=== PATIENT | male | born 1980 | race American Indian/Alaskan Native ===

== ENCOUNTER 2017-02-04 23:59 | Emergency (ER) | payer SELFPAY ==
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
[2017-02-05 01:55] VITALS: TEMP 97.8
[2017-02-05 06:12] VITALS: BP 114/76; PULSE 76; RESP 16; O2SAT 99
== END 2017-02-05 08:38 | disposition home or self-care (01) ==
LOC: ED 23:59
DX: R52 Pain, unspecified (principal)

== ENCOUNTER 2017-04-28 19:01 | Inpatient (IN) | payer MEDICAID ==
--- NOTE | 2017-04-28 19:15 | ED PDOC ---
Arrival/HPI - General Chief Complaint: Fever Time Seen by Provider: 04/28/17 19:11 Historian: Patient - History of Present Illness Narrative History of Present Illness (Text): you were treated in the ED today for history of lower extremity paralysis, chronic cath, right lower thigh decubitus ulceration and now fever, cloudy urine with dry cough, decreased appetite, otherwise without any nausea/vomiting/ headache/dizziness/difficulty breathing/chest pain/abdomen pain/further numbness /tingling/further loss of limb function/pain with urination. 04/28/17 19:15 04/28/17 21:21 04/29/17 00:21 Past Medical History - Provider Review Nursing Documentation Reviewed: Yes - Travel History Have you recently traveled outside [place] w/in the past 3 mons?: No - Past History Past History: No Previous - Cardiac Hx Cardiac Disorders: Yes Hx Hypertension: Yes - Pulmonary Hx Respiratory Disorders: No - Neurological Hx Neurological Disorder: No - HEENT Hx HEENT Disorder: No - Renal Hx Renal Disorder: No - Endocrine/Metabolic Hx Endocrine Disorders: No - Hematological/Oncological Hx Blood Disorders: No - Integumentary Hx Dermatological Disorder: No - Musculoskeletal/Rheumatological Hx Musculoskeletal Disorders: Yes (chronic pain) Other/Comment: paralysis from the waist down - Gastrointestinal Hx Gastrointestinal Disorders: No - Genitourinary/Gynecological Hx Genitourinary Disorders: No - Psychiatric Hx Substance Use: No Family/Social History - Physician Review Nursing Documentation Reviewed: Yes Family/Social History: No Known Family HX Smoking Status: Never Smoked Hx Alcohol Use: Yes Hx Substance Use: No Allergies/Home Meds Allergies/Adverse Reactions: Allergies No Known Allergies Allergy (Verified 02/05/17 00:03) Home Medications: Home Meds Medication Instructions Recorded Confirmed No Known Home Med 02/05/17 02/05/17 Review of Systems - Review of Systems Constitutional: Fevers Eyes: Normal ENT: Normal Respiratory: Cough. absent: Normal, SOB, Sputum, Wheezing, Other Cardiovascular: Normal Gastrointestinal: Normal Genitourinary Male: Other (cloudy urine) Skin: Normal, Other (b/l le paralysis with right lower leg decubitus) Neurological: Normal Endocrine: Normal Hemo/Lymphatic: Normal Psychiatric: Normal Physical Exam Vital Signs Reviewed: Yes Vital Signs Temp Pulse Resp BP Pulse Ox 04/28/17 21:55 98 H 18 97/57 L 96 04/28/17 19:18 100.2 F H 145 H 21 136/79 100 Temperature: Febrile Blood Pressure: Hypertensive Pulse: Regular Respiratory Rate: Normal Appearance: Positive for: Well-Appearing Pain Distress: None Mental Status: Positive for: Alert and Oriented X 3 - Systems Exam Head: Present: Atraumatic, Normocephalic Pupils: Present: PERRL Extroacular Muscles: Present: EOMI Conjunctiva: Present: Normal Ears: Present: Normal Mouth: Present: Moist Mucous Membranes Pharnyx: Present: Normal Nose (External): Present: Atraumatic Nose (Internal): Present: Normal Inspection Neck: Present: Normal Range of Motion Respiratory/Chest: Present: Clear to Auscultation, Good Air Exchange Cardiovascular: Present: Regular Rate and Rhythm Abdomen: No: Tenderness, Distention, Normal Bowel Sounds, Peritoneal Signs, Rebound, Guarding, McBurney's Point Tender, Rovsing's Sign Present, Hernias, Feeding Tubes, Ostomy Tubes, Mass/Organomegaly, Scars, Other Genitourinary Male: Present: Other (catheter with melendez in place and mild skin excoriation without erythema/fluctuance/crepitus or tenderness) Upper Extremity: Present: Normal Inspection Lower Extremity: Present: Other (right lateral thight 20cm circumferential stage 4 decubitus ulceration with fibrinous exudate without erythema/fluctuance/ crepitus.) Neurological: Present: GCS=15, Speech Normal, Motor Func Grossly Intact, Other ( except for b/l le paraylsis) Skin: Present: Warm, Other (see le) Psychiatric: Present: Alert, Oriented x 3, Normal Insight, Normal Concentration Medical Decision Making ED Course and Treatment: you were treated in the ED today for history of lower extremity paralysis, right lower thigh decubitus ulceration and now fever, cloudy urine with dry cough, decreased appetite, otherwise without any nausea/vomiting/headache/ dizziness/difficulty breathing/chest pain/abdomen pain/further numbness/tingling /further loss of limb function/pain with urination. You were otherwise breathing easily, smiling, good strength/sensation upper extremity, wheelchair bound, clear lungs, no abdomen tenderness, fever temp 100.2, initial heart rate 145 with plan for tylenol/intravenous fluids, stable breathing rate 18, excellent oxygen level 96% room air, elevated blood pressure 136 systolic which we recommend repeat in 2-3 days primary care office to determine further treatment, you have blood tests infection count 14.2, low blood level hemoglobin 7.2 heart blood test normal, urine test nitrite positive, influenza negative, lactic acid 1.4, heme/ocult negative, radiology cxr no acute, ECG NSR , ivf/zosyn sepsis bundle done in the ED with improvement. 04/28/17 21:20 pt refusing iv access 04/28/17 21:21 04/28/17 23:08 04/28/17 23:10 04/28/17 23:11 repeat by 97 systolic, ivf hydration 2nd bolus. 04/29/17 00:17 04/29/17 00:18 04/29/17 00:22 04/29/17 00:25 d/w dr. wilkerson for admission for ivf/abx and sepsis care. - Lab Interpretations Lab Results: 04/28/17 21:05 04/28/17 21:05 Lab Results 04/28/17 21:22: pO2 47, VBG pH 7.44 H, VBG pCO2 43.0, VBG HCO3 29.2 H, VBG Total CO2 30.5 H, VBG O2 Sat (Calc) 89.3 H, VBG Base Excess 4.4 H, VBG Potassium 3.6, Glucose 103, Lactate 1.4, FiO2 21.0, Sodium 138.0, Chloride 105.0 , Venous Blood Potassium 3.6 04/28/17 21:05: Influenza Typ A,B (EIA) Negative for flu a/b 04/28/17 21:05: Sodium 138, Potassium 3.6, Chloride 102, Carbon Dioxide 27, Anion Gap 13, BUN 10, Creatinine 0.8, Est GFR ( Amer) > 60, Est GFR (Non- Af Amer) > 60, Random Glucose 100, Calcium 8.7, Phosphorus 2.8, Magnesium 2.1, Total Bilirubin 0.9, AST 89 H, ALT 67 H, Alkaline Phosphatase 171 H, Troponin I < 0.01, Total Protein 7.5, Albumin 3.2, Globulin 4.3, Albumin/Globulin Ratio 0.8 L 04/28/17 21:05: PT 15.6 H, INR 1.42 H, APTT 31.0 04/28/17 21:05: WBC 14.2 H, RBC 2.98 L, Hgb 7.3 L, Hct 22.8 L, MCV 76.5 L, MCH 24.5 L, MCHC 32.0, RDW 15.4 H, Plt Count 421, MPV 8.7, Gran % 84.0 H, Lymph % ( Auto) 10.0 L, [place] % (Auto) 5.5, Eos % (Auto) 0.3 L, Baso % (Auto) 0.2, Gran # 11.95 H, Lymph # 1.4, [place] # 0.8 H, Eos # 0.0, Baso # 0.03 04/28/17 10:54: Urine Color Yellow, Urine Appearance Turbid, Urine pH 6.0, Ur Specific [place] 1.020, Urine Protein 100 H, Urine Glucose (UA) Negative, Urine Ketones 15 H, Urine Blood Moderate H, Urine Nitrate Positive H, Urine Bilirubin Small H, Urine Urobilinogen 4.0 H, Ur Leukocyte Esterase Moderate H, Urine RBC 5 - 10, Urine WBC 20 - 25, Ur Epithelial Cells 1 - 3, Urine Bacteria Mod I have reviewed the lab results: Yes - RAD Interpretation Narrative RAD Interpretations (Text): 04/29/17 00:19 CXR no acute Radiology Orders: 04/28/17 19:43 CHEST TWO VIEWS (PA/LAT) [RAD] Stat Brake Rider: ED Physician - EKG Interpretation Interpreted by ED Physician: Yes (NSR, flipped t waves avr, v1, flattened v3) Type: 12 lead EKG - Medication Orders Current Medication Orders: Acetaminophen (Tylenol 325mg Tab) 975 mg PO ONCE PRN PRN Reason: Fever >100.4 F Last Admin: 04/28/17 19:59 Dose: 975 mg [facility] Pain/Vitals Document 04/28/17 19:59 GMD (Rec: 04/28/17 20:[address] [facility]-[id number]) Pain Reassessment Is This A Pain ReAssessment? No Sleep Is patient sleeping during reassessment? No Presence of Pain Presence of Pain Yes Pain Scale Used Pain Scale Used Numeric Location Left, Right or Bilateral Left Pain Location Body Site rib Sodium Chloride (Sodium Chloride 0.9%) 1,000 mls @ 150 mls/hr IV .Q6H40M [facility] Last Admin: 04/28/17 21:10 Dose: 150 mls/hr eMAR Start Stop Document 04/28/17 21:10 GMD (Rec: 04/28/17 21:[address] [id number]) Intravenous Solution Start Date 04/28/17 Start Time 21:10 Discontinued Medications Piperacillin Sod/Tazobactam Sod (Zosyn 4.5 Gm In Ns 100ml) 4.5 gm in 100 mls @ 200 mls/hr IVPB STAT STA PRN Reason: Protocol Stop: 04/28/17 20:10 Last Admin: 04/28/17 21:58 Dose: 200 mls/hr eMAR Start Stop Document 04/28/17 21:58 GMD (Rec: 04/28/17 21:[address] [id number]) Intravenous Solution Start Date 04/28/17 Start Time 21:58 End Date 04/28/17 End time 22:28 Total Infusion Time 30 Sodium Chloride (Sodium Chloride 0.9%) 1,000 mls @ 2,000 mls/hr IV .Q30M ONE Stop: 04/28/17 23:34 Disposition/Present on Arrival - Present on Arrival Any Indicators Present on Arrival: No History of DVT/PE: No History of Uncontrolled Diabetes: No Urinary Catheter: No History Surgical Site Infection Following: None - Disposition Have Diagnosis and Disposition been Completed?: Yes Diagnosis: Sepsis secondary to UTI Disposition: HOSPITALIZED Disposition Time: 00:24 Patient Plan: Other (remote telemtry) Condition: IMPROVED Discharge Instructions (ExitCare): Sepsis (ED) Referrals: Raciel Fernandez MD [Primary Care Provider] - Follow up with primary Forms: [employer] ([place]an)
[2017-04-28] MEDS ORDERED: Piperacill/Tazo 4.5gm in NS 4.5 GM/100 ML BAG IVPB STA (19:41)
[2017-04-28] MEDS: Sodium Chloride 0.9% 1,000 ML IV SCH (21:10)
[2017-04-28 21:26] LABS: BASO # 0.03 K/mm3 (0.0-2.0); BASO % 0.2 % (0.0-3.0); EOS % 0.3 % (1.5-5.0); GRAN # 11.95 (1.4-6.5); LYMPH # 1.4 (1.2-3.4); MEAN CELL VOLUME 76.5 fl (80.0-105.0); MEAN CORPUSCULAR HEMOGLOBIN 24.5 pg (25.0-35.0); MEAN PLATELET VOLUME 8.7 fl (7.0-11.0); MONO # 0.8 (0.1-0.6); MONO % 5.5 % (1.0-6.0); RBC 2.98 10^6/uL (3.5-6.1); RED CELL DISTRIBUTION WIDTH 15.4 % (11.5-14.5); WHITE BLOOD COUNT 14.2 10^3/ul (4.5-11.0)
[2017-04-28 21:30] LABS: VENOUS BLOOD GAS BASE EXCESS 4.4 mmol/L (0.0-2.0); VENOUS BLOOD GAS PO2 47 mm/Hg (30-55); VENOUS BLOOD PH 7.44 (7.32-7.43)
[2017-04-28 21:35] LABS: INR 1.42 (0.93-1.08); PROTHROMBIN TIME 15.6 SECONDS (9.4-12.5)
[2017-04-28 21:39] LABS: ALB/GLOB RATIO 0.8 (1.1-1.8); ALBUMIN 3.2 g/dL (3.0-4.8); ALT/SGPT 67 U/L (7-56); AST/SGOT 89 U/L (17-59); BLOOD UREA NITROGEN 10 mg/dL (7-21); CALCIUM 8.7 mg/dL (8.4-10.5); GFR AFRICAN-AMERICAN > 60; GFR NON-AFRICAN AMERICAN > 60; MAGNESIUM 2.1 mg/dL (1.7-2.2)
[2017-04-28 22:10] LABS: HEMOGLOBIN 7.3 g/dL (14.0-18.0)
[2017-04-28 23:03] LABS: URINE BILIRUBIN SMALL (NEGATIVE); URINE BLOOD MODERATE (NEGATIVE); URINE GLUCOSE (UA) NEGATIVE (NEGATIVE); URINE LEUKOCYTE ESTERASE MODERATE Leu/uL (NEGATIVE); URINE NITRATE POSITIVE (NEGATIVE); URINE PROTEIN 100 mg/dL (<30 mg/dL)
[2017-04-28] MEDS ORDERED: Sodium Chloride 0.9% 1,000 ML IV ONE (23:05)
[2017-04-28 23:07] LABS: TROPONIN I < 0.01 ng/mL
[2017-04-28 23:07] LABS: URINE APPEARANCE TURBID (CLEAR); URINE COLOR YELLOW (YELLOW)
[2017-04-28 23:18] LABS: URINE WBC 20 - 25 /hpf (0-6)
[2017-04-28 23:19] LABS: URINE BACTERIA MOD (NEG)
--- NOTE | 2017-04-29 00:44 | CP.PCM.HP ---
<Luke Puga - Last Filed: 04/29/17 02:07> History of Present Illness - History of Present Illness History of Present Illness: 37 year old male paraplegic with a past medical history of hypertension who presents with four days of cloudy urine, loss of appetite, and fevers. On Tuesday he was discharged from [facility] in [place] for which he was being treated for a large stage IV decubitus ulcer on the right buttock. Since his discharge he was sent home with a melendez and leg bag. He denies any suprapubic fullness, burning with urination and classic symptoms of UTI given he lacks sensation from T12 down. He denies chest pain, nausea, vomiting, dizziness, syncope, or lightheadedness. PMD: Dr. Raciel Fernandez Pharmacy: [facility] in , please contact to obtain medications PSH: Debridement of decubitus ulcer PMH: Hypertension and alcohol abuse (remote) Allergies: NKDA Social: Lives with and kids, denies alcohol, tobacco, or illicit drug use. Wheel-chair and bed-bound Family History: Denies Present on Admission - Present on Admission Any Indicators Present on Admission: Yes Urinary Catheter: Yes Review of Systems - Constitutional Constitutional: Anorexia, Chills. absent: Weight Gain - EENT Eyes: As Per HPI Nose/Mouth/Throat: absent: Nasal Trauma, Halitosis Past Patient History - Past Social History Smoking Status: Never Smoked - CARDIAC Hx Cardiac Disorders: Yes Hx Hypertension: Yes - PULMONARY Hx Respiratory Disorders: No - NEUROLOGICAL Hx Neurological Disorder: No - HEENT Hx HEENT Problems: No - RENAL Hx Chronic Kidney Disease: No - ENDOCRINE/METABOLIC Hx Endocrine Disorders: No - HEMATOLOGICAL/ONCOLOGICAL Hx Blood Disorders: No - INTEGUMENTARY Hx Dermatological Problems: No - MUSCULOSKELETAL/RHEUMATOLOGICAL Hx Musculoskeletal Disorders: Yes (chronic pain) Other/Comment: paralysis from the waist down - GASTROINTESTINAL Hx Gastrointestinal Disorders: No - GENITOURINARY/GYNECOLOGICAL Hx Genitourinary Disorders: No - PSYCHIATRIC Hx Substance Use: No - SURGICAL HISTORY Hx Surgeries: Yes Meds Allergies/Adverse Reactions: Allergies Allergy/AdvReac Type Severity Reaction Status Date / Time No Known Allergies Allergy Verified 02/05/17 00:03 Physical Exam - Constitutional Appears: Non-toxic, No Acute Distress - Head Exam Head Exam: ATRAUMATIC, NORMOCEPHALIC - Eye Exam Eye Exam: Conjunctival injection Additional comments: bilateral pterygium, strabismus - ENT Exam ENT Exam: Mucous Membranes Dry, Normal Oropharynx - Neck Exam Neck exam: Positive for: Normal Inspection - Respiratory Exam Respiratory Exam: Clear to Auscultation Bilateral, NORMAL BREATHING PATTERN - Cardiovascular Exam Cardiovascular Exam: RRR, +S1, +S2 - GI/Abdominal Exam GI & Abdominal Exam: Normal Bowel Sounds, Soft. absent: Distended, Guarding, Rebound - Exam Exam: Circumcision, NORMAL INSPECTION - Extremities Exam Additional comments: legs are contractured and exhibit hair loss and pale circular macules diffusely - Back Exam Back exam: NORMAL INSPECTION. absent: CVA tenderness (L), CVA tenderness (R) - Neurological Exam Neurological exam: Alert, Oriented x3 - Psychiatric Exam Psychiatric exam: Normal Affect, Normal Mood - Skin Skin Exam: Dry, Intact, Normal Color, Warm Results - Vital Signs Recent Vital Signs: Last Vital Signs Temp 100.2 F H 04/28/17 19:18 Pulse 98 H 04/28/17 21:55 Resp 18 04/28/17 21:55 BP 97/57 L 04/28/17 21:55 Pulse Ox 96 04/28/17 21:55 - Labs Result Diagrams: 04/28/17 21:05 04/28/17 21:05 Labs: Laboratory Results - last 24 hr 04/28/17 04/28/17 04/28/17 10:54 21:05 21:05 WBC 14.2 H RBC 2.98 L Hgb 7.3 L Hct 22.8 L MCV 76.5 L MCH 24.5 L MCHC 32.0 RDW 15.4 H Plt Count 421 MPV 8.7 Gran % 84.0 H Lymph % (Auto) 10.0 L [place] % (Auto) 5.5 Eos % (Auto) 0.3 L Baso % (Auto) 0.2 Gran # 11.95 H Lymph # 1.4 [place] # 0.8 H Eos # 0.0 Baso # 0.03 PT 15.6 H INR 1.42 H APTT 31.0 pO2 VBG pH VBG pCO2 VBG HCO3 VBG Total CO2 VBG O2 Sat (Calc) VBG Base Excess VBG Potassium Glucose Lactate FiO2 Sodium Potassium Chloride Carbon Dioxide Anion Gap BUN Creatinine Est GFR ( Amer) Est GFR (Non-Af Amer) Random Glucose Calcium Phosphorus Magnesium Total Bilirubin AST ALT Alkaline Phosphatase Troponin I Total Protein Albumin Globulin Albumin/Globulin Ratio Venous Blood Potassium Urine Color Yellow Urine Appearance Turbid Urine pH 6.0 Ur Specific [place] 1.020 Urine Protein 100 H Urine Glucose (UA) Negative Urine Ketones 15 H Urine Blood Moderate H Urine Nitrate Positive H Urine Bilirubin Small H Urine Urobilinogen 4.0 H Ur Leukocyte Esterase Moderate H Urine RBC 5 - 10 Urine WBC 20 - 25 Ur Epithelial Cells 1 - 3 Urine Bacteria Mod Influenza Typ A,B (EIA) 04/28/17 04/28/17 04/28/17 21:05 21:05 21:22 WBC RBC Hgb Hct MCV MCH MCHC RDW Plt Count MPV Gran % Lymph % (Auto) [place] % (Auto) Eos % (Auto) Baso % (Auto) Gran # Lymph # [place] # Eos # Baso # PT INR APTT pO2 47 VBG pH 7.44 H VBG pCO2 43.0 VBG HCO3 29.2 H VBG Total CO2 30.5 H VBG O2 Sat (Calc) 89.3 H VBG Base Excess 4.4 H VBG Potassium 3.6 Glucose 103 Lactate 1.4 FiO2 21.0 Sodium 138 138.0 Potassium 3.6 Chloride 102 105.0 Carbon Dioxide 27 Anion Gap 13 BUN 10 Creatinine 0.8 Est GFR ( Amer) > 60 Est GFR (Non-Af Amer) > 60 Random Glucose 100 Calcium 8.7 Phosphorus 2.8 Magnesium 2.1 Total Bilirubin 0.9 AST 89 H ALT 67 H Alkaline Phosphatase 171 H Troponin I < 0.01 Total Protein 7.5 Albumin 3.2 Globulin 4.3 Albumin/Globulin Ratio 0.8 L Venous Blood Potassium 3.6 Urine Color Urine Appearance Urine pH Ur Specific [place] Urine Protein Urine Glucose (UA) Urine Ketones Urine Blood Urine Nitrate Urine Bilirubin Urine Urobilinogen Ur Leukocyte Esterase Urine RBC Urine WBC Ur Epithelial Cells Urine Bacteria Influenza Typ A,B (EIA) Negative for flu a/b Assessment & Plan - Assessment and Plan (Free Text) Assessment: 37 year old paraplegic with hypertension, immobility, stage IV right gluteal decubitus ulcer for which he was in [facility] for wound care and discharged with a leg melendez bag who now presents with 3.5 days of cloudy urine, fever, and lack of appetite. Plan: 1) Urosepsis - 2L of IVF and Zosyn given in the ED - Ceftriaxone 2 gm q24h - Vitals q4h - Blood culture - Urine culture - Chest X-ray, interpretation pending 2) Anemia, baseline unknown; patient reports dark colored stool, but denies fatigue, dyspnea, shortness of breath, - GI consulted - Stool Guaic negative in ED - Type and screen - 1 U PRBCs to be administered. - Repeat CBC, CMP in AM 3) DVT/GI prophylaxis - Lovenox - Protonix - Date & Time Date: 04/29/17 Time: 02:16 Decision To Admit - . Bed Request Type: Med/Surg <Fuentes,Bankimchan - Last Filed: 04/29/17 03:46> Results - Vital Signs Recent Vital Signs: Last Vital Signs Temp 100.2 F H 04/28/17 19:18 Pulse 92 H 04/29/17 01:00 Resp 18 04/29/17 01:00 BP 104/73 04/29/17 01:00 Pulse Ox 100 04/29/17 01:00 - Labs Result Diagrams: 04/28/17 21:05 04/28/17 21:05 Labs: Laboratory Results - last 24 hr 04/29/17 04/29/17 00:50 02:30 Blood Type O NEGATIVE Blood Type Confirm O NEGATIVE Antibody Screen Negative Crossmatch See Detail BBK History Checked No verified bt Attending/Attestation - Attestation I have personally seen and examined this patient.: Yes I have fully participated in the care of the patient.: Yes I have reviewed all pertinent clinical information: Yes Notes (Text): 04/29/17 03:43 Patient was seen when he was in bed # 17 in the ER. Agree with history , physical examination, assessment and plan. Has large right gluteal wound.
[2017-04-29 05:08] VITALS: BMI 20.5
[2017-04-29] MEDS ORDERED: Pantoprazole 20 mg EC Tab PO SCH ×2 (06:00→07:59)
[2017-04-29 07:37] LABS: BASO # 0.04 K/mm3 (0.0-2.0); BASO % 0.4 % (0.0-3.0); EOS # 0.1 (0.0-0.7); EOS % 1.1 % (1.5-5.0); GRAN # 9.65 (1.4-6.5); GRAN % 85.2 % (50.0-68.0); HEMOGLOBIN 8.2 g/dL (14.0-18.0); LYMPH # 0.8 (1.2-3.4); LYMPH % 6.9 % (22.0-35.0); MEAN CELL VOLUME 77.5 fl (80.0-105.0); MEAN CORPUSCULAR HEMOGLOBIN 25.2 pg (25.0-35.0); MEAN CORPUSCULAR HGB CONC 32.5 g/dl (31.0-37.0); MEAN PLATELET VOLUME 8.5 fl (7.0-11.0); MONO # 0.7 (0.1-0.6); MONO % 6.4 % (1.0-6.0); RBC 3.25 10^6/uL (3.5-6.1); RED CELL DISTRIBUTION WIDTH 15.3 % (11.5-14.5); WHITE BLOOD COUNT 11.3 10^3/ul (4.5-11.0)
[2017-04-29 07:47] LABS: ALBUMIN 2.8 g/dL (3.0-4.8); ALT/SGPT 60 U/L (7-56); AST/SGOT 77 U/L (17-59); BLOOD UREA NITROGEN 8 mg/dL (7-21); CALCIUM 8.3 mg/dL (8.4-10.5); GFR AFRICAN-AMERICAN > 60; GFR NON-AFRICAN AMERICAN > 60
[2017-04-29 08:03] LABS: ALB/GLOB RATIO 0.7 (1.1-1.8)
--- NOTE | 2017-04-29 09:29 | RAD ---
HISTORY: 37yoM, with cough, fever COMPARISON: No prior. TECHNIQUE: Chest PA and lateral FINDINGS: LUNGS: No active pulmonary disease. PLEURA: No significant pleural effusion identified. No pneumothorax apparent. CARDIOVASCULAR: Normal. OSSEOUS STRUCTURES: Spinal rods noted. VISUALIZED UPPER ABDOMEN: Normal. OTHER FINDINGS: None. IMPRESSION: No active disease.
--- NOTE | 2017-04-29 10:26 | CARD ---
APPROVED REPORT EKG Measurement Heart [id number] <Conclusion> Normal sinus rhythm LVH by voltage, could be a normal variant Prolonged QTc
[2017-04-29] MEDS: Sodium Chloride 0.9% 1,000 ML IV SCH (10:40)
[2017-04-29] MEDS: Enoxaparin 30 mg Syringe SC SCH (10:50)
[2017-04-29] MEDS: cefTRIAXone 2 GM IN NS 2 GM/100 ML BAG IVPB SCH (10:50)
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
--- NOTE | 2017-04-29 18:25 | CP.PCM.CON ---
History of Present Illness - History of Present Illness History of Present Illness: General Surgery Consult note- Dr. Bennett 37 M paraplegic with a past medical history of hypertension who presents with four days of cloudy urine, loss of appetite, and fevers. On Tuesday he was discharged from [facility] facility in [place] for which he was being treated for a large stage IV decubitus ulcer on the right buttock. Patient reports ulcers on Patient denies chest pain, shortness of breath, abdominal pain, numbness, weakness, dizziness, syncope, nausea, vomiting, fever, chills. PMH: Hypertension and alcohol abuse (remote) PSH: Debridement of decubitus ulcer Allergies: NKDA Social: Lives with and kids, denies alcohol, tobacco, or illicit drug use. Wheel-chair and bed-bound Family History: Denies Review of Systems - Review of Systems All systems: reviewed and no additional remarkable complaints except - Constitutional Constitutional: As Per HPI Past Patient History - Past Social History Smoking Status: Former Smoker - CARDIAC Hx Cardiac Disorders: Yes Hx Hypertension: Yes - PULMONARY Hx Respiratory Disorders: No - NEUROLOGICAL Hx Neurological Disorder: No - HEENT Hx HEENT Problems: No - RENAL Hx Chronic Kidney Disease: No - ENDOCRINE/METABOLIC Hx Endocrine Disorders: No - HEMATOLOGICAL/ONCOLOGICAL Hx Blood Disorders: No - INTEGUMENTARY Hx Dermatological Problems: No - MUSCULOSKELETAL/RHEUMATOLOGICAL Hx Falls: No - GASTROINTESTINAL Hx Gastrointestinal Disorders: No - GENITOURINARY/GYNECOLOGICAL Hx Genitourinary Disorders: No - PSYCHIATRIC Hx Substance Use: No - SURGICAL HISTORY Hx Surgeries: Yes Meds Allergies/Adverse Reactions: Allergies Allergy/AdvReac Type Severity Reaction Status Date / Time No Known Allergies Allergy Verified 02/05/17 00:03 - Medications Medications: Current Medications Acetaminophen (Tylenol 325mg Tab) 975 mg PO ONCE PRN PRN Reason: Fever >100.4 F Last Admin: 04/28/17 19:59 Dose: 975 mg Enoxaparin Sodium (Lovenox) 30 mg SC DAILY [facility] PRN Reason: Protocol Last Admin: 04/29/17 10:50 Dose: 30 mg Sodium Chloride (Sodium Chloride 0.9%) 1,000 mls @ 150 mls/hr IV .Q6H40M [facility] Last Admin: 04/29/17 10:40 Dose: 150 mls/hr Ceftriaxone Sodium (Rocephin 2 Gm Ivpb) 2 gm in 100 mls @ 100 mls/hr IVPB DAILY [facility] PRN Reason: Protocol Last Admin: 04/29/17 10:50 Dose: 100 mls/hr Pantoprazole Sodium (Protonix Ec Tab) 40 mg PO 0600 [facility] Physical Exam - Head Exam Head Exam: ATRAUMATIC - Eye Exam Eye Exam: EOMI. absent: Scleral icterus - ENT Exam ENT Exam: Mucous Membranes Moist - Respiratory Exam Respiratory Exam: NORMAL BREATHING PATTERN. absent: Accessory Muscle Use, Respiratory Distress - Cardiovascular Exam Cardiovascular Exam: +S1, +S2. absent: Bradycardia, Tachycardia - GI/Abdominal Exam GI & Abdominal Exam: Soft. absent: Distended, Rebound, Rigid, Tenderness - Back Exam Additional comments: Right Hip Stage 4 ulcer w/ necrotic tissue left hip stage 3 ulcer - Neurological Exam Neurological exam: Alert, Oriented x3 - Skin Skin Exam: Warm Results - Vital Signs Recent Vital Signs: Last Vital Signs Temp 100.1 F H 04/29/17 17:25 Pulse 108 H 04/29/17 17:25 Resp 20 04/29/17 17:25 BP 125/85 04/29/17 17:25 Pulse Ox 100 04/29/17 10:38 - Labs Result Diagrams: 04/29/17 07:00 04/29/17 07:00 Labs: Laboratory Results - last 24 hr 04/29/17 04/29/17 04/29/17 00:50 02:30 07:00 WBC 11.3 H D RBC 3.25 L Hgb 8.2 L Hct 25.2 L MCV 77.5 L MCH 25.2 MCHC 32.5 RDW 15.3 H Plt Count 344 MPV 8.5 Gran % 85.2 H Lymph % (Auto) 6.9 L Morgan % (Auto) 6.4 H Eos % (Auto) 1.1 L Baso % (Auto) 0.4 Gran # 9.65 H Lymph # 0.8 L Morgan # 0.7 H Eos # 0.1 Baso # 0.04 Sodium Potassium Chloride Carbon Dioxide Anion Gap BUN Creatinine Est GFR ( Amer) Est GFR (Non-Af Amer) Random Glucose Calcium Total Bilirubin AST ALT Alkaline Phosphatase Total Protein Albumin Globulin Albumin/Globulin Ratio Blood Type O NEGATIVE Blood Type Confirm O NEGATIVE Antibody Screen Negative Crossmatch See Detail BBK History Checked No verified bt 04/29/17 07:00 WBC RBC Hgb Hct MCV MCH MCHC RDW Plt Count MPV Gran % Lymph % (Auto) Morgan % (Auto) Eos % (Auto) Baso % (Auto) Gran # Lymph # Morgan # Eos # Baso # Sodium 142 Potassium 3.6 Chloride 107 Carbon Dioxide 26 Anion Gap 12 BUN 8 Creatinine 0.7 L Est GFR ( Amer) > 60 Est GFR (Non-Af Amer) > 60 Random Glucose 98 Calcium 8.3 L Total Bilirubin 0.8 AST 77 H ALT 60 H Alkaline Phosphatase 139 H Total Protein 6.8 Albumin 2.8 L Globulin 4.0 Albumin/Globulin Ratio 0.7 L Blood Type Blood Type Confirm Antibody Screen Crossmatch BBK History Checked Assessment & Plan - Assessment and Plan (Free Text) Assessment: 37M w/ stage 4 right hip ulcer, left stage 3 ischial ulcer Plan: - bedside sharp debridement - wet to dry w/ betadine - plan for santyl - recommend second stage debridement at a later date - medical management per primary team - abx per ID - further recs per Dr. Donald Monsivais PGY1 Procedure note: The patient was properly prepped and draped under local sedation. 1% Lidocaine was injected circumferentially around the necrotic decubitus. A wide excision and debridement of the necrotic decubitus taken down using sharp debridement # 11 blade and scissors. Levels of debridement were skin subcutaneous tissue, and muscle. Thermo-cautery was used to achieve proper hemostasis. Kerlix soaked w/ betadine stack was then placed and a pressure dressing applied. patient tolerated the procedure well. .
[2017-04-29] MEDS ORDERED: guaiFENesin DM 100 mg-10 mg/5 ml UD PO ONE (23:21)
[2017-04-30] MEDS: Pantoprazole 40 mg EC Tab PO SCH (06:00)
--- NOTE | 2017-04-30 08:05 | CP.PCM.PN ---
Subjective - Date & Time of Evaluation Date of Evaluation: 04/30/17 Time of Evaluation: 06:40 - Subjective Subjective: Surgery Progress note. Dr. Bennett Pt seen and examined at bedside. No acute events overnight. Denies F/C. No new complaints. Bilateral hip debridement dressing changed this AM Objective - Vital Signs/Intake and Output Vital Signs (last 24 hours): Temp Pulse Resp BP Pulse Ox 99.5 F 103 H 18 100/64 100 04/29/17 19:24 04/29/17 19:24 04/29/17 19:24 04/29/17 19:24 04/29/17 16:00 Intake and Output: 04/30/17 04/30/17 06:59 18:59 Intake Total 1235 Output Total 700 Balance 535 - Medications Medications: Current Medications Acetaminophen (Tylenol 325mg Tab) 975 mg PO ONCE PRN PRN Reason: Fever >100.4 F Last Admin: 04/28/17 19:59 Dose: 975 mg Enoxaparin Sodium (Lovenox) 30 mg SC DAILY [facility] PRN Reason: Protocol Last Admin: 04/29/17 10:50 Dose: 30 mg Sodium Chloride (Sodium Chloride 0.9%) 1,000 mls @ 150 mls/hr IV .Q6H40M [facility] Last Admin: 04/29/17 10:40 Dose: 150 mls/hr Ceftriaxone Sodium (Rocephin 2 Gm Ivpb) 2 gm in 100 mls @ 100 mls/hr IVPB DAILY [facility] PRN Reason: Protocol Last Admin: 04/29/17 10:50 Dose: 100 mls/hr Pantoprazole Sodium (Protonix Ec Tab) 40 mg PO 0600 [facility] Last Admin: 04/30/17 06:00 Dose: 40 mg - Labs Labs: 04/29/17 07:00 04/29/17 07:00 PT 15.6 SECONDS (9.4-12.5) H 04/28/17 21:05 INR 1.42 (0.93-1.08) H 04/28/17 21:05 APTT 31.0 Seconds (25.1-36.5) 04/28/17 21:05 - Constitutional Appears: Non-toxic, No Acute Distress - Head Exam Head Exam: ATRAUMATIC, NORMAL INSPECTION, NORMOCEPHALIC - Eye Exam Eye Exam: EOMI - ENT Exam ENT Exam: Mucous Membranes Moist - Respiratory Exam Respiratory Exam: absent: Accessory Muscle Use - Cardiovascular Exam Cardiovascular Exam: absent: JVD - GI/Abdominal Exam GI & Abdominal Exam: Soft. absent: Distended, Guarding, Tenderness - Extremities Exam Additional comments: Right hip Stage 4 decubitus. Dressing changed with betadine soaked kerlex and optifoam Left hip Stage 4 decubitus. Dressing changed with betadine soaked kerlex packing and abd pads. - Neurological Exam Neurological Exam: Alert, Awake, Oriented x3 Neuro motor strength exam: Left Lower Extremity: 0, Right Lower Extremity: 0 Assessment and Plan - Assessment and Plan (Free Text) Assessment: 37yo M with stage 4 right hip ulcer, stage 4 left ischial ulcer. S/P Bedside debridement 04/29/17. - wet to dry w/ betadine. Dressing changes prn - medical management per primary team - abx per ID - will continue to follow Further recs per Dr. Donald Cage PGY1 surgery pager: [phone]
[2017-04-30] MEDS: Enoxaparin 30 mg Syringe SC SCH (09:13)
[2017-04-30] MEDS: cefTRIAXone 2 GM IN NS 2 GM/100 ML BAG IVPB SCH (09:13)
--- NOTE | 2017-04-30 13:31 | PN ---
DATE: 04/30/2017 SUBJECTIVE: The patient is lying in bed. He refused blood work including a CBC this morning. He denies any rectal bleeding, nausea, vomiting, abdominal pain. He had bedside debridement of his large stage IV decubitus yesterday. OBJECTIVE: VITAL SIGNS: Reveal temperature of 99.4, blood pressure 103/57, heart rate of 81. ABDOMEN: Soft, nontender. SKIN: He has a right hip decubitus covered by a dressing which I did not remove to examine. LABORATORY DATA: Revealed hemoglobin of 8.2. He received 2 units of packed blood cells yesterday. A post-transfusion CBC is not available as the patient refused blood work. IMPRESSION: 1. Anemia, most likely chronic disease. 2. Bilateral stage IV decubitus ulcers on his lower extremities. RECOMMENDATIONS: Supportive care. His long-term prognosis is guarded. Tucker Alex MD
--- NOTE | 2017-04-30 14:23 | CP.PCM.PN ---
<Teddy Bean - Last Filed: 05/01/17 07:42> Subjective - Date & Time of Evaluation Date of Evaluation: 04/30/17 Time of Evaluation: 07:00 - Subjective Subjective: Patient seen and evaluated at bedside in no acute distress. Complained of cough and fevers over night stating these symptoms have been going on since being admitted. Denies chest pain, abdominal pain, shortness of breath, chills, nausea , vomiting, diarrhea. Objective - Vital Signs/Intake and Output Vital Signs (last 24 hours): Temp Pulse Resp BP Pulse Ox 99.4 F 81 20 103/57 L 99 04/30/17 07:30 04/30/17 07:30 04/30/17 07:30 04/30/17 07:30 04/30/17 07:30 Intake and Output: 04/30/17 04/30/17 06:59 18:59 Intake Total 1235 Output Total 700 Balance 535 - Medications Medications: Current Medications Acetaminophen (Tylenol 325mg Tab) 975 mg PO ONCE PRN PRN Reason: Fever >100.4 F Last Admin: 04/28/17 19:59 Dose: 975 mg Collagenase (Santyl) 1 gm TOP BID [facility] Enoxaparin Sodium (Lovenox) 30 mg SC DAILY [facility] PRN Reason: Protocol Last Admin: 04/30/17 09:13 Dose: 30 mg Ceftriaxone Sodium (Rocephin 2 Gm Ivpb) 2 gm in 100 mls @ 100 mls/hr IVPB DAILY [facility] PRN Reason: Protocol Last Admin: 04/30/17 09:13 Dose: 100 mls/hr Pantoprazole Sodium (Protonix Ec Tab) 40 mg PO 0600 [facility] Last Admin: 04/30/17 06:00 Dose: 40 mg - Labs Labs: 04/29/17 07:00 04/29/17 07:00 PT 15.6 SECONDS (9.4-12.5) H 04/28/17 21:05 INR 1.42 (0.93-1.08) H 04/28/17 21:05 APTT 31.0 Seconds (25.1-36.5) 04/28/17 21:05 - Constitutional Appears: Non-toxic, No Acute Distress - Head Exam Head Exam: ATRAUMATIC, NORMAL INSPECTION, NORMOCEPHALIC - Eye Exam Eye Exam: EOMI, Normal appearance - ENT Exam ENT Exam: Mucous Membranes Moist, Normal Exam - Neck Exam Neck Exam: Normal Inspection - Respiratory Exam Respiratory Exam: Clear to Ausculation Bilateral, NORMAL BREATHING PATTERN. absent: Wheezes - Cardiovascular Exam Cardiovascular Exam: REGULAR RHYTHM, +S1, +S2 - GI/Abdominal Exam GI & Abdominal Exam: Soft, Normal Bowel Sounds - Rectal Exam Rectal Exam: NORMAL INSPECTION - Neurological Exam Neurological Exam: Alert, Awake, Oriented x3 - Psychiatric Exam Psychiatric exam: Normal Affect, Normal Mood - Skin Skin Exam: Intact, Normal Color, Warm Assessment and Plan - Assessment and Plan (Free Text) Assessment: 37 year old paraplegic with hypertension, immobility, right and left gluteal decubitus ulcers for which he was in [facility] for wound care and discharged with a leg melendez bag who now presents with 3.5 days of cloudy urine, fever, and lack of appetite. Plan: 1. Urosepsis - Leukocytosis downtrended from 14.2 to 11.3 - 2L of IVF and Zosyn given in the ED - Ceftriaxone 2 gm q24h - Vitals q4h - Blood culture; no growth after 24 hours - Urine culture; final no growth - Chest X-ray, interpretation pending 2. Anemia, baseline unknown; patient reports dark colored stool, but denies fatigue, dyspnea, shortness of breath - GI on board - Stool Guaic negative in ED - Type and screened - 2 U PRBCs administered - H&H 8.2/26.2 from 7.3/22.8 DVT/GI prophylaxis - Lovenox - Protonix <Rangasamy,Ajantha - Last Filed: 05/01/17 10:49> Objective - Vital Signs/Intake and Output Vital Signs (last 24 hours): Temp Pulse Resp BP Pulse Ox 98.9 F 88 20 111/79 99 05/01/17 07:30 05/01/17 07:30 05/01/17 07:30 05/01/17 07:30 05/01/17 07:30 Intake and Output: 05/01/17 05/01/17 06:59 18:59 Intake Total 1500 Output Total 1600 Balance -100 - Medications Medications: Current Medications Acetaminophen (Tylenol 325mg Tab) 650 mg PO Q4H PRN PRN Reason: Fever >100.4 F Last Admin: 05/01/17 00:14 Dose: 650 mg Collagenase (Santyl) 1 gm TOP BID [facility] Last Admin: 04/30/17 17:38 Dose: Not Given Enoxaparin Sodium (Lovenox) 30 mg SC DAILY [facility] PRN Reason: Protocol Last Admin: 04/30/17 09:13 Dose: 30 mg Guaifenesin/Dextromethorphan (Robitussin Dm) 5 ml PO Q4H PRN PRN Reason: Cough Last Admin: 05/01/17 00:14 Dose: 5 ml Meropenem (Merrem Iv 1 Gm Premix) 50 mls @ 100 mls/hr IVPB Q8 [facility] PRN Reason: Protocol Ibuprofen (Motrin Tab) 400 mg PO Q6H PRN PRN Reason: Fever >100.4 F Pantoprazole Sodium (Protonix Ec Tab) 40 mg PO 0600 [facility] Last Admin: 05/01/17 06:23 Dose: 40 mg - Labs Labs: 05/01/17 06:30 05/01/17 06:30 PT 15.6 SECONDS (9.4-12.5) H 04/28/17 21:05 INR 1.42 (0.93-1.08) H 04/28/17 21:05 APTT 31.0 Seconds (25.1-36.5) 04/28/17 21:05 Attending/Attestation - Attestation I have personally seen and examined this patient.: Yes I have fully participated in the care of the patient.: Yes I have reviewed all pertinent clinical information, including history, physical exam and plan: Yes Notes (Text): 05/01/17 10:42 attending note; Patient seen and examined with resident. Patient is a 37 year old male paraplegic with a past medical history of hypertension who presents with four days of cloudy urine, loss of appetite, and fevers. On Tuesday he was discharged from [facility] in [place]. He had visiting nurses arranged for wound care. He did not have any supplies. Currently patient is getting treated with IV Rocephin. Afebrile and nontoxic. Wound care debridement done by surgery Dr. Bennett. Continue dressing change per surgery. Has Melendez catheter in place. Blood, urine culture pending. Tolerating diet well. anemia; mostly secondary to anemia of chronic disease. Status post 2 units PRBC transfusion. Hemoglobin is stable. Guaiac negative. GI evaluation appreciated. Elevated LFT. we will get hepatitis profile. We'll get shelter case manager/social professionals evaluation for discharge planning. upon discharge the patient will follow-up with PMD .
[2017-04-30] MEDS: Collagenase 250 Units/gm Ointment(30 gm) TOP SCH (17:38)
[2017-04-30] MEDS ORDERED: guaiFENesin DM 100 mg-10 mg/5 ml UD PO PRN (23:58)
[2017-05-01] MEDS: Pantoprazole 40 mg EC Tab PO SCH (06:23)
[2017-05-01 07:17] LABS: BASO # 0.05 K/mm3 (0.0-2.0); BASO % 0.4 % (0.0-3.0); EOS # 0.2 (0.0-0.7); EOS % 1.8 % (1.5-5.0); GRAN # 9.23 (1.4-6.5); GRAN % 80.1 % (50.0-68.0); HEMOGLOBIN 9.7 g/dL (14.0-18.0); LYMPH # 1.4 (1.2-3.4); LYMPH % 12.1 % (22.0-35.0); MEAN CELL VOLUME 79.5 fl (80.0-105.0); MEAN CORPUSCULAR HEMOGLOBIN 25.5 pg (25.0-35.0); MEAN CORPUSCULAR HGB CONC 32.1 g/dl (31.0-37.0); MEAN PLATELET VOLUME 8.7 fl (7.0-11.0); MONO # 0.7 (0.1-0.6); MONO % 5.6 % (1.0-6.0); RBC 3.8 10^6/uL (3.5-6.1); WHITE BLOOD COUNT 11.5 10^3/ul (4.5-11.0)
--- NOTE | 2017-05-01 07:37 | CP.PCM.PN ---
<Teddy Bean - Last Filed: 05/02/17 06:37> Subjective - Date & Time of Evaluation Date of Evaluation: 05/01/17 Time of Evaluation: 06:05 - Subjective Subjective: Patient seen and examined at [facility] in no acute distress. Patient states he was diaphoretic at times overnight and still admits to a cough. Nurse states patient spiked a fever but has remained afebrile since. Admits to cough, fevers , diaphoresis. Denies chest pain, abdominal pain, shortness of breath, chills. Objective - Vital Signs/Intake and Output Vital Signs (last 24 hours): Temp Pulse Resp BP Pulse Ox 98.8 F 109 H 20 117/84 99 05/01/17 02:00 05/01/17 00:00 05/01/17 00:00 05/01/17 00:00 05/01/17 00:00 Intake and Output: 05/01/17 05/01/17 06:59 18:59 Intake Total 1500 Output Total 1600 Balance -100 - Medications Medications: Current Medications Acetaminophen (Tylenol 325mg Tab) 650 mg PO Q4H PRN PRN Reason: Fever >100.4 F Last Admin: 05/01/17 00:14 Dose: 650 mg Collagenase (Santyl) 1 gm TOP BID [facility] Last Admin: 04/30/17 17:38 Dose: Not Given Enoxaparin Sodium (Lovenox) 30 mg SC DAILY [facility] PRN Reason: Protocol Last Admin: 04/30/17 09:13 Dose: 30 mg Guaifenesin/Dextromethorphan (Robitussin Dm) 5 ml PO Q4H PRN PRN Reason: Cough Last Admin: 05/01/17 00:14 Dose: 5 ml Ceftriaxone Sodium (Rocephin 2 Gm Ivpb) 2 gm in 100 mls @ 100 mls/hr IVPB DAILY [facility] PRN Reason: Protocol Last Admin: 04/30/17 09:13 Dose: 100 mls/hr Pantoprazole Sodium (Protonix Ec Tab) 40 mg PO 0600 [facility] Last Admin: 05/01/17 06:23 Dose: 40 mg - Labs Labs: 05/01/17 06:30 04/29/17 07:00 PT 15.6 SECONDS (9.4-12.5) H 04/28/17 21:05 INR 1.42 (0.93-1.08) H 04/28/17 21:05 APTT 31.0 Seconds (25.1-36.5) 04/28/17 21:05 - Constitutional Appears: Non-toxic, No Acute Distress - Head Exam Head Exam: ATRAUMATIC, NORMAL INSPECTION, NORMOCEPHALIC - Eye Exam Eye Exam: EOMI, Normal appearance - ENT Exam ENT Exam: Mucous Membranes Moist, Normal Exam - Respiratory Exam Respiratory Exam: Clear to Ausculation Bilateral, NORMAL BREATHING PATTERN. absent: Wheezes - Cardiovascular Exam Cardiovascular Exam: REGULAR RHYTHM, +S1, +S2 - GI/Abdominal Exam GI & Abdominal Exam: Soft, Normal Bowel Sounds - Back Exam Back Exam: NORMAL INSPECTION - Neurological Exam Neurological Exam: Alert, Awake, Oriented x3 - Psychiatric Exam Psychiatric exam: Normal Affect, Normal Mood - Skin Skin Exam: Intact, Normal Color, Warm Assessment and Plan - Assessment and Plan (Free Text) Assessment: 37 year old paraplegic with hypertension, immobility, right and left gluteal decubitus ulcers for which he was in [facility] for wound care and discharged with a leg melendez bag who now presents with 3.5 days of cloudy urine, fever, and lack of appetite. Plan: 1. Urosepsis - Leukocytosis downtrended from 14.2 to 11.5 - 2L of IVF and Zosyn given in the ED - Ceftriaxone 2 gm q24h, ID consulted for further input since patient is continuing to have fevers - Vitals q4h - Blood culture; no growth after 48 hours - Urine culture; final no growth - Chest X-ray shows no active disease - CT abdomen/pelvis ordered; results pending - Abdominal US ordered; results pending 2. Decubitus ulcer - Stage IV right and left buttock decubitus ulcers under care of surgery; debridement and santyl - Wound cultures ordered; results pending 3. Anemia, baseline unknown; patient reports dark colored stool, but denies fatigue, dyspnea, shortness of breath - GI on board - Stool Guaic negative in ED - Type and screen - 2 U PRBCs to be administered. - H&H now 9.7/30.2 up from 8.2/26.2 DVT/GI prophylaxis - Lovenox - Protonix <Bing Lim B - Last Filed: 05/03/17 15:46> Objective - Vital Signs/Intake and Output Vital Signs (last 24 hours): Temp Pulse Resp BP Pulse Ox 98.6 F 84 20 118/81 99 05/03/17 07:30 05/03/17 07:30 05/03/17 07:30 05/03/17 07:30 05/03/17 07:30 Intake and Output: 05/03/17 05/03/17 06:59 18:59 Intake Total 420 780 Output Total 1575 1100 Balance -1155 -320 - Medications Medications: Current Medications Acetaminophen (Tylenol 325mg Tab) 650 mg PO Q4H PRN PRN Reason: Fever >100.4 F Last Admin: 05/01/17 00:14 Dose: 650 mg Ascorbic Acid (Vitamin C 500 Mg Tab) 500 mg PO DAILY [facility] Collagenase (Santyl) 1 gm TOP BID [facility] Last Admin: 05/03/17 09:55 Dose: 1 applic Enoxaparin Sodium (Lovenox) 30 mg SC DAILY [facility] PRN Reason: Protocol Last Admin: 05/03/17 09:54 Dose: 30 mg Guaifenesin/Dextromethorphan (Robitussin Dm) 5 ml PO Q4H PRN PRN Reason: Cough Last Admin: 05/01/17 00:14 Dose: 5 ml Meropenem (Merrem Iv 1 Gm Premix) 50 mls @ 100 mls/hr IVPB Q8 [facility] PRN Reason: Protocol Last Admin: 05/03/17 13:46 Dose: 100 mls/hr Ibuprofen (Motrin Tab) 400 mg PO Q6H PRN PRN Reason: Fever >100.4 F Last Admin: 05/03/17 10:44 Dose: 400 mg Multivitamins/Minerals (Therapeutic-M Tab) 1 tab PO DAILY [facility] Pantoprazole Sodium (Protonix Ec Tab) 40 mg PO 0600 [facility] Last Admin: 05/03/17 05:52 Dose: 40 mg Zinc Sulfate (Zinc Sulfate 220 Mg Cap) 220 mg PO DAILY [facility] - Labs Labs: 05/03/17 06:40 05/02/17 06:30 PT 15.6 SECONDS (9.4-12.5) H 04/28/17 21:05 INR 1.42 (0.93-1.08) H 04/28/17 21:05 APTT 31.0 Seconds (25.1-36.5) 04/28/17 21:05 Attending/Attestation - Attestation I have personally seen and examined this patient.: Yes I have fully participated in the care of the patient.: Yes I have reviewed all pertinent clinical information, including history, physical exam and plan: Yes Notes (Text): I have seen and examined with the resident. Agree with the above note with the following additions/ exceptions: Briefly this is 37 year old male paraplegic with a past medical history of hypertension who presents with four days of cloudy urine, loss of appetite, and fevers. On Tuesday he was discharged from [facility] facility in [place]. He had visiting nurses arranged for wound care however he did not have any supplies. Currently patient is getting treated with meropenem. Bedside wound care debridement done by surgery. Continue dressing change per surgery. Has Melendez catheter in place. Blood and urine culture negative. Anemia is mostly secondary to anemia of chronic disease. Status post 2 units PRBC transfusion. Hemoglobin is stable. FOBT negative. GI evaluation appreciated. He has elevated LFT. Hepatitis panel is negative. manager cosmetics/social worker clinical evaluation for discharge planning. Upon discharge the patient will follow-up with PMD . Dr Bing Lim
[2017-05-01 07:54] LABS: ALB/GLOB RATIO 0.7 (1.1-1.8); ALT/SGPT 57 U/L (7-56); AST/SGOT 56 U/L (17-59); BLOOD UREA NITROGEN 6 mg/dL (7-21); GFR AFRICAN-AMERICAN > 60; GFR NON-AFRICAN AMERICAN > 60
[2017-05-01] MEDS ORDERED: Vancomycin 2 GM in Sodium Chloride 0.9% 500 ML IVPB ONE (08:41)
--- NOTE | 2017-05-01 10:23 | CP.PCM.PN ---
Subjective - Date & Time of Evaluation Date of Evaluation: 05/01/17 Time of Evaluation: 07:00 - Subjective Subjective: General Surgery Note Dr. Bennett Patient seen and examined at bedside. Patient resting in bed comfortably. Tmax of 101.1 overnight. Patient tolerating diet and having normal BMs. Patient has no other complaints at this time. Objective - Vital Signs/Intake and Output Vital Signs (last 24 hours): Temp Pulse Resp BP Pulse Ox 98.9 F 88 20 111/79 99 05/01/17 07:30 05/01/17 07:30 05/01/17 07:30 05/01/17 07:30 05/01/17 07:30 Intake and Output: 05/01/17 05/01/17 06:59 18:59 Intake Total 1500 Output Total 1600 Balance -100 - Medications Medications: Current Medications Acetaminophen (Tylenol 325mg Tab) 650 mg PO Q4H PRN PRN Reason: Fever >100.4 F Last Admin: 05/01/17 00:14 Dose: 650 mg Collagenase (Santyl) 1 gm TOP BID [facility] Last Admin: 04/30/17 17:38 Dose: Not Given Enoxaparin Sodium (Lovenox) 30 mg SC DAILY [facility] PRN Reason: Protocol Last Admin: 04/30/17 09:13 Dose: 30 mg Guaifenesin/Dextromethorphan (Robitussin Dm) 5 ml PO Q4H PRN PRN Reason: Cough Last Admin: 05/01/17 00:14 Dose: 5 ml Vancomycin HCl 2 gm/ Sodium (Chloride) 500 mls @ 170 mls/hr IVPB ONCE ONE PRN Reason: Protocol Stop: 05/01/17 11:37 Piperacillin Sod/Tazobactam Sod (Zosyn 3.375 In Ns 100ml) 100 mls @ 200 mls/hr IVPB Q6 [facility] PRN Reason: Protocol Stop: 05/01/17 18:29 Ibuprofen (Motrin Tab) 400 mg PO Q6H PRN PRN Reason: Fever >100.4 F Pantoprazole Sodium (Protonix Ec Tab) 40 mg PO 0600 [facility] Last Admin: 05/01/17 06:23 Dose: 40 mg - Labs Labs: 05/01/17 06:30 05/01/17 06:30 PT 15.6 SECONDS (9.4-12.5) H 04/28/17 21:05 INR 1.42 (0.93-1.08) H 04/28/17 21:05 APTT 31.0 Seconds (25.1-36.5) 04/28/17 21:05 - Constitutional Appears: No Acute Distress - Head Exam Head Exam: ATRAUMATIC, NORMOCEPHALIC - Eye Exam Eye Exam: Normal appearance - ENT Exam ENT Exam: Mucous Membranes Moist - Respiratory Exam Respiratory Exam: NORMAL BREATHING PATTERN - Cardiovascular Exam Cardiovascular Exam: REGULAR RHYTHM - GI/Abdominal Exam GI & Abdominal Exam: Soft. absent: Tenderness - Extremities Exam Additional comments: paraplegic - Back Exam Additional comments: Right hip Stage 4 decubitus. Dressing changed kerlex packing and santyl Left hip Stage 4 decubitus. Dressing changed kerlex packing and santyl - Neurological Exam Neurological Exam: Alert, Awake, Oriented x3 - Psychiatric Exam Psychiatric exam: Normal Affect, Normal Mood - Skin Skin Exam: Dry, Warm Assessment and Plan - Assessment and Plan (Free Text) Plan: 37 M with stage 4 right hip ulcer, stage 4 left ischial ulcer, s/p Bedside debridement 04/29/17 - Dressing changes with Santyl PRN - medical management per primary team - IV antibiotics - Anti-pyretics PRN - Discussed with Dr. Donald Cervantes PGY1
[2017-05-01] MEDS: Enoxaparin 30 mg Syringe SC SCH (10:56)
[2017-05-01] MEDS: Collagenase 250 Units/gm Ointment(30 gm) TOP SCH ×2 (10:57→17:46)
[2017-05-01 11:27] LABS: URINE APPEARANCE CLEAR (CLEAR); URINE BILIRUBIN NEGATIVE (NEGATIVE); URINE BLOOD SMALL (NEGATIVE); URINE COLOR YELLOW (YELLOW); URINE GLUCOSE (UA) NEGATIVE (NEGATIVE); URINE LEUKOCYTE ESTERASE SMALL Leu/uL (NEGATIVE); URINE NITRATE NEGATIVE (NEGATIVE); URINE PROTEIN NEGATIVE mg/dL (<30 mg/dL)
[2017-05-01 11:44] LABS: URINE BACTERIA FEW (NEG); URINE EPITHELIAL CELLS 0 - 2 /hpf (0-5); URINE RBC 0 - 2 /hpf (0-2)
[2017-05-01] MEDS ORDERED: Piperacillin/Tazobact 3.375 gm 100 ML IVPB SCH (12:00)
[2017-05-01] MEDS: Meropenem IV 1 gm in NS 50 ML IVPB SCH ×2 (14:48→21:49)
--- NOTE | 2017-05-01 15:24 | US ---
HISTORY: size of CBD COMPARISON: None. TECHNIQUE: Sonographic evaluation of the abdomen. FINDINGS: LIVER: Measures 17.8 cm. Hepatopedal blood flow. Fatty infiltration manifest ultrasonographically as increased echogenicity of the liver parenchyma. No mass. No intrahepatic bile duct dilatation. GALLBLADDER: Unremarkable. No gallstones. COMMON BILE DUCT: Measures 4.25 mm. No stones. No dilatation. PANCREAS: Unremarkable as visualized. No mass. No ductal dilatation. RIGHT KIDNEY: Measures 3.4 x 11.3cm. Normal echogenicity. No calculus, mass, or hydronephrosis. LEFT KIDNEY: Measures 6.1 x 10.6cm. Normal echogenicity. No calculus, mass, or hydronephrosis. SPLEEN: Normal in size and contour. No mass. AORTA: No aneurysmal dilatation. IVC: Unremarkable. OTHER FINDINGS: None. IMPRESSION: Unremarkable abdominal sonogram. Common bile duct diameter at the van hepatis 4.25 mm. This is within normal limits
[2017-05-01] MEDS ORDERED: Iohexol 240 (50 ml) ONE (16:16)
--- NOTE | 2017-05-01 19:48 | CT ---
EXAM: CT Abdomen and Pelvis With Intravenous Contrast EXAM DATE/TIME: 05/01/2017 10:23 AM CLINICAL HISTORY: The patient age is 37 years old and is male; Signs and symptoms; Fever; Prior surgery; Surgery date: 6+ months; Surgery type: Per pt HX of appendectomy; Additional info: Fever gall bladder Facility exam id and description: Ct abdpels abd pelvis po contrast only TECHNIQUE: Axial computed tomography images of the abdomen and pelvis with intravenous contrast. All CT scans at this facility use one or more dose reduction techniques, viz.: automated exposure control; ma/kV adjustment per patient size (including targeted exams where dose is matched to indication; i.e. head); or iterative reconstruction technique. Coronal and sagittal reformatted images were created and reviewed. CONTRAST: 50 mL of omni 240 administered intravenously. COMPARISON: US - ABDOMEN COMPLETE 2017-05-01 13:44 FINDINGS: Lower thorax: Mild atelectatic changes are visualized at the lung bases. There is a small hiatal hernia. ABDOMEN: Liver: Streaking artifact from the surgical hardware within the spine limits evaluation of the liver. Gallbladder and bile ducts: No calcified stones. No ductal dilation. Pancreas: Normal contour, without acute peripancreatic stranding. Spleen: No splenomegaly. Adrenals: No mass. Kidneys and ureters: No hydronephrosis. No solid mass. Stomach and bowel: Moderate fecal material is identified within the colon. There is mild gaseous and fecal distention of the rectum. Appendix: The appendix is absent. PELVIS: Bladder: A Peterson catheter is visualized within the bladder, which is decompressed. Reproductive: Unremarkable as visualized. ABDOMEN and PELVIS: Intraperitoneal space: No free air. Bones/joints: Extensive postoperative fusion hardware is seen within the thoracic spine. Streaking artifact from surgical hardware within the spine limits this study. Mineralized loose bodies and hyperostosis are identified involving the bilateral hips, left side greater than right. Osteomyelitis cannot be excluded on CT. Soft tissues: There is an area of soft tissue loss lateral to the right hip, which is likely postoperative or ulcerative. Vasculature: An IVC filter is identified. No abdominal aortic aneurysm. Lymph nodes: A few mildly enlarged retroperitoneal lymph nodes are identified. Within the left periaortic region, there is a 1.4 x 0.9 cm lymph node. An enlarged lymph node is seen adjacent to the right common iliac artery measuring 1.2 cm in length. Enlarged lymph nodes are visualized along the external iliac chains, right side greater than left. There is bilateral inguinal lymphadenopathy. IMPRESSION: 1. A few mildly enlarged retroperitoneal lymph nodes are identified. Enlarged lymph nodes are visualized along the external iliac chains, right side greater than left. There is bilateral inguinal lymphadenopathy. These lymph nodes are nonspecific as to etiology. 2. There is an area of soft tissue loss lateral to the right hip, which is likely postoperative or ulcerative. If there is a clinical concern for infection, MRI with/without contrast of this region is recommended. 3. There is a small hiatal hernia. 4. Additional CT findings described above.
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
[2017-05-02] MEDS: Meropenem IV 1 gm in NS 50 ML IVPB SCH ×3 (05:45→21:38)
[2017-05-02] MEDS: Pantoprazole 40 mg EC Tab PO SCH (06:14)
[2017-05-02 07:42] LABS: BASO # 0.02 K/mm3 (0.0-2.0); BASO % 0.2 % (0.0-3.0); EOS # 0.2 (0.0-0.7); EOS % 2.1 % (1.5-5.0); GRAN # 7.55 (1.4-6.5); GRAN % 78.5 % (50.0-68.0); LYMPH # 1.3 (1.2-3.4); LYMPH % 13.6 % (22.0-35.0); MEAN CELL VOLUME 79.7 fl (80.0-105.0); MEAN CORPUSCULAR HEMOGLOBIN 25.7 pg (25.0-35.0); MEAN CORPUSCULAR HGB CONC 32.3 g/dl (31.0-37.0); MEAN PLATELET VOLUME 8.5 fl (7.0-11.0); MONO # 0.5 (0.1-0.6); MONO % 5.6 % (1.0-6.0); RBC 3.5 10^6/uL (3.5-6.1); RED CELL DISTRIBUTION WIDTH 16.2 % (11.5-14.5); WHITE BLOOD COUNT 9.6 10^3/ul (4.5-11.0)
[2017-05-02 07:57] LABS: ALB/GLOB RATIO 0.7 (1.1-1.8); ALBUMIN 2.8 g/dL (3.0-4.8); ALT/SGPT 61 U/L (7-56); AST/SGOT 76 U/L (17-59); BLOOD UREA NITROGEN 7 mg/dL (7-21); CALCIUM 8.6 mg/dL (8.4-10.5); GFR AFRICAN-AMERICAN > 60; GFR NON-AFRICAN AMERICAN > 60
--- NOTE | 2017-05-02 08:18 | CP.PCM.PN ---
Subjective - Date & Time of Evaluation Date of Evaluation: 05/02/17 Time of Evaluation: 07:10 - Subjective Subjective: Surgery Progress note. Dr. Bennett Pt seen and examined at bedside. No acute events overnight. Denies any F/C. Dressings in place, changed this AM. No new complaints. Objective - Vital Signs/Intake and Output Vital Signs (last 24 hours): Temp Pulse Resp BP Pulse Ox 98.8 F 109 H 20 111/72 98 05/01/17 16:45 05/01/17 16:45 05/01/17 16:45 05/01/17 16:45 05/01/17 16:45 Intake and Output: 05/02/17 05/02/17 06:59 18:59 Intake Total 240 Output Total 200 Balance 40 - Medications Medications: Current Medications Acetaminophen (Tylenol 325mg Tab) 650 mg PO Q4H PRN PRN Reason: Fever >100.4 F Last Admin: 05/01/17 00:14 Dose: 650 mg Collagenase (Santyl) 1 gm TOP BID [facility] Last Admin: 05/01/17 17:46 Dose: Not Given Enoxaparin Sodium (Lovenox) 30 mg SC DAILY [facility] PRN Reason: Protocol Last Admin: 05/01/17 10:56 Dose: 30 mg Guaifenesin/Dextromethorphan (Robitussin Dm) 5 ml PO Q4H PRN PRN Reason: Cough Last Admin: 05/01/17 00:14 Dose: 5 ml Meropenem (Merrem Iv 1 Gm Premix) 50 mls @ 100 mls/hr IVPB Q8 [facility] PRN Reason: Protocol Last Admin: 05/02/17 05:45 Dose: 100 mls/hr Ibuprofen (Motrin Tab) 400 mg PO Q6H PRN PRN Reason: Fever >100.4 F Pantoprazole Sodium (Protonix Ec Tab) 40 mg PO 0600 [facility] Last Admin: 05/02/17 06:14 Dose: Not Given - Labs Labs: 05/02/17 06:30 05/02/17 06:30 PT 15.6 SECONDS (9.4-12.5) H 04/28/17 21:05 INR 1.42 (0.93-1.08) H 04/28/17 21:05 APTT 31.0 Seconds (25.1-36.5) 04/28/17 21:05 - Constitutional Appears: Well, No Acute Distress - Head Exam Head Exam: ATRAUMATIC, NORMAL INSPECTION, NORMOCEPHALIC - Eye Exam Eye Exam: EOMI - ENT Exam ENT Exam: Mucous Membranes Moist - Respiratory Exam Respiratory Exam: NORMAL BREATHING PATTERN. absent: Accessory Muscle Use, Respiratory Distress - Cardiovascular Exam Cardiovascular Exam: absent: JVD - GI/Abdominal Exam GI & Abdominal Exam: Soft. absent: Distended, Guarding, Rigid, Tenderness - Extremities Exam Additional comments: Right Stage 4 hip ulcer: Dressing changed with betadine kerlex and abd Left stage 3 ischial ulcer: Dressing changed with betadine kerex and Abd pad. - Neurological Exam Neurological Exam: Alert, Awake, Oriented x3 Assessment and Plan - Assessment and Plan (Free Text) Assessment: 37yo M with stage 4 right hip ulcer, stage 4 left ischial ulcer, s/p bedside debridement 04/29/17 - Dressing changes with Santyl BID - IV antibiotics - Medical management as per primary Further recs as per Dr. Donald Cage PGY1 surgery pager: [phone]
--- NOTE | 2017-05-02 08:32 | CP.PCM.PN ---
<Jessi Kate - Last Filed: 05/02/17 13:33> Subjective - Date & Time of Evaluation Date of Evaluation: 05/02/17 Time of Evaluation: 09:00 - Subjective Subjective: PGY2 Medicine note for Dr. Lim Patient seen and examined at bedside. Nursing reports no acute events overnight. Patient's sacral wound dressings were changed this AM by nursing. Patient was afebrile overnight and denied fever, chills, headache, dizziness, chest pain, palpitations, SOB, cough, abd pain, nausea, vomiting, bowel complaints. Patient's melendez cath in place and making good UO. Appetite good. Patient came from home where he has a home nurse. He is open to being discharged to [facility] in [place]. Patient also requesting supplies. Objective - Vital Signs/Intake and Output Vital Signs (last 24 hours): Temp Pulse Resp BP Pulse Ox 98.8 F 109 H 20 111/72 98 05/01/17 16:45 05/01/17 16:45 05/01/17 16:45 05/01/17 16:45 05/01/17 16:45 Intake and Output: 05/02/17 05/02/17 06:59 18:59 Intake Total 240 Output Total 200 Balance 40 - Medications Medications: Current Medications Acetaminophen (Tylenol 325mg Tab) 650 mg PO Q4H PRN PRN Reason: Fever >100.4 F Last Admin: 05/01/17 00:14 Dose: 650 mg Collagenase (Santyl) 1 gm TOP BID [facility] Last Admin: 05/01/17 17:46 Dose: Not Given Enoxaparin Sodium (Lovenox) 30 mg SC DAILY [facility] PRN Reason: Protocol Last Admin: 05/01/17 10:56 Dose: 30 mg Guaifenesin/Dextromethorphan (Robitussin Dm) 5 ml PO Q4H PRN PRN Reason: Cough Last Admin: 05/01/17 00:14 Dose: 5 ml Meropenem (Merrem Iv 1 Gm Premix) 50 mls @ 100 mls/hr IVPB Q8 [facility] PRN Reason: Protocol Last Admin: 05/02/17 05:45 Dose: 100 mls/hr Ibuprofen (Motrin Tab) 400 mg PO Q6H PRN PRN Reason: Fever >100.4 F Pantoprazole Sodium (Protonix Ec Tab) 40 mg PO 0600 [facility] Last Admin: 05/02/17 06:14 Dose: Not Given - Labs Labs: 05/02/17 06:30 05/02/17 06:30 PT 15.6 SECONDS (9.4-12.5) H 04/28/17 21:05 INR 1.42 (0.93-1.08) H 04/28/17 21:05 APTT 31.0 Seconds (25.1-36.5) 04/28/17 21:05 - Constitutional Appears: Non-toxic, No Acute Distress, Chronically Ill - Head Exam Head Exam: ATRAUMATIC, NORMAL INSPECTION, NORMOCEPHALIC - Eye Exam Eye Exam: EOMI, Normal appearance, PERRL. absent: Conjunctival injection, Scleral icterus Pupil Exam: NORMAL ACCOMODATION - ENT Exam ENT Exam: Mucous Membranes Moist - Neck Exam Neck Exam: Normal Inspection. absent: Lymphadenopathy - Respiratory Exam Respiratory Exam: Clear to Ausculation Bilateral, NORMAL BREATHING PATTERN. absent: Accessory Muscle Use, Rales, Rhonchi, Wheezes, Respiratory Distress - Cardiovascular Exam Cardiovascular Exam: Tachycardia, REGULAR RHYTHM, +S1, +S2 - GI/Abdominal Exam GI & Abdominal Exam: Soft, Normal Bowel Sounds. absent: Firm, Guarding, Rigid, Tenderness - Extremities Exam Additional comments: Right Stage 4 hip ulcer: Dressing changed with betadine kerlex and abd pad Left stage 3 ischial ulcer: Dressing changed with betadine kerex and Abd pad. - Neurological Exam Neurological Exam: Alert, Awake, Oriented x3 - Psychiatric Exam Psychiatric exam: Flat Affect, Normal Mood - Skin Skin Exam: Dry, Warm Assessment and Plan - Assessment and Plan (Free Text) Assessment: 37yo paraplegic male with HTN, immobility, right and left gluteal decubitus ulcers for which he was in [facility] for wound care and discharged with a leg melendez bag who presented [facility] with 3.5 days of cloudy urine, fever, and lack of appetite. Plan: Sepsis - likely secondary to decubitus ulcers vs UTI - Leukocytosis downtrended from 14.2 --> 11.5 --> 9.6 this AM - patient afebrile overnight - merrem 1gm ivpb q8 Day 2 - Tylenol for temp - Blood culture: prelim neg x 2 - Urine culture: final no growth x 2 - CRP > 15 - ESR : 101 - CXR: NAD - CT abdomen/pelvis: few mildly enlarged retroperitoneal lymph nodes. Enlarged lymph nodes are visualized along external iliac chains R > L. B/l inguinal lymphadenopathy. Area of soft tissue loss lateral to the right hip which is likely postop or ulcerative. Small hiatal hernia - Abd u/s: CBD at van hepatis 4.25mm. WNL Decubitus ulcer - Stage 4 right hip ulcer and Stage 4 left ischial ulcer, s/p bedside debridement 04/29/17 - Dressing changes with santyl bid - IV abx - Wound cultures: gram neg olman - Surgery following Anemia - likely of chronic disease - f/u anemia workup - Stool Guaic negative in ED - Type and screen - 2 U PRBCs administered. - H&H stable- will continue to monitor - GI on board Transaminitis - Abd u/s unremarkable - Hep panel neg - Monitor DVT/GI prophylaxis - Lovenox - Protonix Discussed with Dr. Raphael Kate PGY2 <Bing Lim B - Last Filed: 05/03/17 17:28> Objective - Vital Signs/Intake and Output Vital Signs (last 24 hours): Temp Pulse Resp BP Pulse Ox 98.1 F 69 18 100/68 98 05/02/17 16:03 05/02/17 16:03 05/02/17 16:03 05/02/17 16:03 05/02/17 16:03 Intake and Output: 05/02/17 05/02/17 06:59 18:59 Intake Total 240 640 Output Total 200 700 Balance 40 -60 - Medications Medications: Current Medications Acetaminophen (Tylenol 325mg Tab) 650 mg PO Q4H PRN PRN Reason: Fever >100.4 F Last Admin: 05/01/17 00:14 Dose: 650 mg Collagenase (Santyl) 1 gm TOP BID [facility] Last Admin: 05/02/17 09:10 Dose: 1 applic Enoxaparin Sodium (Lovenox) 30 mg SC DAILY [facility] PRN Reason: Protocol Last Admin: 05/02/17 09:08 Dose: 30 mg Guaifenesin/Dextromethorphan (Robitussin Dm) 5 ml PO Q4H PRN PRN Reason: Cough Last Admin: 05/01/17 00:14 Dose: 5 ml Meropenem (Merrem Iv 1 Gm Premix) 50 mls @ 100 mls/hr IVPB Q8 [facility] PRN Reason: Protocol Last Admin: 05/02/17 14:17 Dose: 100 mls/hr Ibuprofen (Motrin Tab) 400 mg PO Q6H PRN PRN Reason: Fever >100.4 F Last Admin: 05/02/17 11:11 Dose: 400 mg Pantoprazole Sodium (Protonix Ec Tab) 40 mg PO 0600 [facility] Last Admin: 05/02/17 06:14 Dose: Not Given - Labs Labs: 05/02/17 06:30 05/02/17 06:30 PT 15.6 SECONDS (9.4-12.5) H 04/28/17 21:05 INR 1.42 (0.93-1.08) H 04/28/17 21:05 APTT 31.0 Seconds (25.1-36.5) 04/28/17 21:05 Attending/Attestation - Attestation I have personally seen and examined this patient.: Yes I have fully participated in the care of the patient.: Yes I have reviewed all pertinent clinical information, including history, physical exam and plan: Yes Notes (Text): I have seen and examined the patient at bedside. Agree with the above note with the following additions/ exceptions: Briefly this is 37 year old paraplegic male with history of HTN, immobility, right and left gluteal decubitus ulcers for which he was in [facility] for wound care and discharged with a leg melendez bag who presented with complaints of cloudy urine, fever, and lack of appetite. UA positive however awaiting urine culture results. Patient underwent bedside sacral wound debridement on 04/29. Leukocytosis resolved. Continue meropenem. Blood culture negative.Patient was given 2 units of prbc during hospitalization. Upon discharge patient will follow up with Dr Fernandez. Dr Bing Lim
[2017-05-02] MEDS: Enoxaparin 30 mg Syringe SC SCH (09:08)
[2017-05-02] MEDS: Collagenase 250 Units/gm Ointment(30 gm) TOP SCH ×2 (09:10→18:03)
[2017-05-02 12:46] LABS: HEPATITIS B SURFACE AG NEGATIVE (NEGATIVE)
[2017-05-02 12:52] LABS: HEPATITIS A IGM NEGATIVE (NEGATIVE); HEPATITIS B CORE AB Negative (NEGATIVE)
[2017-05-02 13:03] LABS: HEPATITIS C ANTIBODY Negative (NEGATIVE)
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
[2017-05-03] MEDS: Pantoprazole 40 mg EC Tab PO SCH (05:52)
[2017-05-03] MEDS: Meropenem IV 1 gm in NS 50 ML IVPB SCH ×3 (05:52→23:05)
[2017-05-03 07:04] LABS: BASO # 0.02 K/mm3 (0.0-2.0); BASO % 0.2 % (0.0-3.0); EOS # 0.2 (0.0-0.7); EOS % 2.2 % (1.5-5.0); GRAN # 7.84 (1.4-6.5); GRAN % 80.2 % (50.0-68.0); HEMOGLOBIN 9.1 g/dL (14.0-18.0); LYMPH # 1.3 (1.2-3.4); LYMPH % 13.2 % (22.0-35.0); MEAN CELL VOLUME 80.2 fl (80.0-105.0); MEAN CORPUSCULAR HEMOGLOBIN 25.4 pg (25.0-35.0); MEAN CORPUSCULAR HGB CONC 31.7 g/dl (31.0-37.0); MEAN PLATELET VOLUME 8.4 fl (7.0-11.0); MONO # 0.4 (0.1-0.6); MONO % 4.2 % (1.0-6.0); RBC 3.58 10^6/uL (3.5-6.1); RED CELL DISTRIBUTION WIDTH 16.4 % (11.5-14.5); WHITE BLOOD COUNT 9.8 10^3/ul (4.5-11.0)
[2017-05-03 07:10] LABS: IRON 16 ug/dL (45-180)
[2017-05-03 07:19] LABS: TOTAL IRON BINDING CAPACITY 152 ug/dL (261-462)
[2017-05-03 07:30] LABS: % IRON SATURATION 10 % (20-55)
[2017-05-03] MEDS: Enoxaparin 30 mg Syringe SC SCH (09:54)
[2017-05-03] MEDS: Collagenase 250 Units/gm Ointment(30 gm) TOP SCH ×2 (09:55→17:02)
--- NOTE | 2017-05-03 14:01 | PN ---
DATE: SUBJECTIVE: [place] is seen. The decubitus on the left side is doing well. On the right side, there is some necrotic muscle and fascia and continued. I don't particularly like the wet-to-dry and Aquacel is suggested. Isaiah Bennett MD
--- NOTE | 2017-05-03 15:59 | CP.PCM.PN ---
<Stoney Dean - Last Filed: 05/03/17 15:50> Subjective - Date & Time of Evaluation Date of Evaluation: 05/03/17 Time of Evaluation: 15:50 - Subjective Subjective: Medicine Progress Note Pt seen and examined at bedside. No acute overnight events. Pt states that he is open to going to [facility] on discharge provided he receives Rx for wound care supplies. Pt denied CP, SOB, nausea, vomiting, diarrhea, abdominal pain, fever, chills, TELLEZ, dizziness. Objective - Vital Signs/Intake and Output Vital Signs (last 24 hours): Temp Pulse Resp BP Pulse Ox 98.6 F 84 20 118/81 99 05/03/17 07:30 05/03/17 07:30 05/03/17 07:30 05/03/17 07:30 05/03/17 07:30 Intake and Output: 05/03/17 05/03/17 06:59 18:59 Intake Total 420 780 Output Total 1575 1100 Balance -1155 -320 - Medications Medications: Current Medications Acetaminophen (Tylenol 325mg Tab) 650 mg PO Q4H PRN PRN Reason: Fever >100.4 F Last Admin: 05/01/17 00:14 Dose: 650 mg Ascorbic Acid (Vitamin C 500 Mg Tab) 500 mg PO DAILY [facility] Collagenase (Santyl) 1 gm TOP BID [facility] Last Admin: 05/03/17 09:55 Dose: 1 applic Enoxaparin Sodium (Lovenox) 30 mg SC DAILY [facility] PRN Reason: Protocol Last Admin: 05/03/17 09:54 Dose: 30 mg Guaifenesin/Dextromethorphan (Robitussin Dm) 5 ml PO Q4H PRN PRN Reason: Cough Last Admin: 05/01/17 00:14 Dose: 5 ml Meropenem (Merrem Iv 1 Gm Premix) 50 mls @ 100 mls/hr IVPB Q8 [facility] PRN Reason: Protocol Last Admin: 05/03/17 13:46 Dose: 100 mls/hr Ibuprofen (Motrin Tab) 400 mg PO Q6H PRN PRN Reason: Fever >100.4 F Last Admin: 05/03/17 10:44 Dose: 400 mg Multivitamins/Minerals (Therapeutic-M Tab) 1 tab PO DAILY [facility] Pantoprazole Sodium (Protonix Ec Tab) 40 mg PO 0600 [facility] Last Admin: 05/03/17 05:52 Dose: 40 mg Zinc Sulfate (Zinc Sulfate 220 Mg Cap) 220 mg PO DAILY [facility] - Labs Labs: 05/03/17 06:40 05/02/17 06:30 PT 15.6 SECONDS (9.4-12.5) H 04/28/17 21:05 INR 1.42 (0.93-1.08) H 04/28/17 21:05 APTT 31.0 Seconds (25.1-36.5) 04/28/17 21:05 - Constitutional Appears: No Acute Distress - Head Exam Head Exam: NORMAL INSPECTION - Eye Exam Eye Exam: Normal appearance - ENT Exam ENT Exam: Normal Exam - Neck Exam Neck Exam: Normal Inspection - Respiratory Exam Respiratory Exam: Clear to Ausculation Bilateral. absent: Accessory Muscle Use , Rales, Rhonchi, Wheezes, Respiratory Distress - Cardiovascular Exam Cardiovascular Exam: RRR, +S1, +S2. absent: Gallop, Rubs, Murmur - GI/Abdominal Exam GI & Abdominal Exam: Soft. absent: Distended, Guarding, Tenderness, Rebound - Extremities Exam Additional comments: Right Stage 4 hip ulcer, Left stage 3 ischial ulcer. Dressing clean, dry, and intact. - Back Exam Back Exam: NORMAL INSPECTION - Neurological Exam Neurological Exam: Alert, Awake, Oriented x3 - Psychiatric Exam Psychiatric exam: Normal Affect, Normal Mood - Skin Skin Exam: Dry, Intact, Normal Color, Warm Assessment and Plan - Assessment and Plan (Free Text) Assessment: 37yo paraplegic male with HTN, immobility, right and left gluteal decubitus ulcers for which he was in [facility] for wound care and discharged with a leg melendez bag who presented to [facility] ED with 3.5 days of cloudy urine, fever, and lack of appetite. Plan: 1. Sepsis - likely secondary to decubitus ulcers vs UTI - Leukocytosis resolved, Afebrile - ID consulted Merrem 1gm IVPB Q8h Day 3, patient will require 7-10 days total - Blood and urine cultures negative - Wound cultures Left ischial positive for Klebsiella pneumoniae and Enterococcus Faecalis Right Hip positive for E. coli and Proteus Mirabilis - Elevated CRP and ESR - CT abdomen/pelvis: few mildly enlarged retroperitoneal lymph nodes. Enlarged lymph nodes are visualized along external iliac chains R > L. B/l inguinal lymphadenopathy. Area of soft tissue loss lateral to the right hip which is likely postop or ulcerative. Small hiatal hernia - Abd u/s: CBD at van hepatis 4.25mm. WNL - Tylenol for temp 2. Decubitus ulcer - Stage 4 right hip ulcer and Stage 4 left ischial ulcer, s/p bedside debridement 04/29/17 - Wound cultures Left ischial positive for Klebsiella pneumoniae and Enterococcus Faecalis Right Hip positive for E. coli and Proteus Mirabilis - Surgery consulted for wound care - Cont IV abx 3. Anemia of Chronic Disease - Low Fe, TIBC, and %sat - Stool Guaiac negative in ED - 2 U PRBCs administered - H&H stable, will continue to monitor - GI consulted 4. Transaminitis - Abd u/s unremarkable - Hep panel neg - Monitor DVT/GI prophylaxis - Lovenox - Protonix Patient seen and discussed in detail with Dr. Lim. Carlos Dean, PGY1 <Bing Lim B - Last Filed: 05/04/17 18:05> Objective - Vital Signs/Intake and Output Vital Signs (last 24 hours): Temp Pulse Resp BP Pulse Ox 99.1 F 82 20 97/66 L 98 05/03/17 16:00 05/03/17 16:00 05/03/17 16:00 05/03/17 16:00 05/03/17 16:00 Intake and Output: 05/03/17 05/03/17 06:59 18:59 Intake Total 420 780 Output Total 1575 1100 Balance -1155 -320 - Medications Medications: Current Medications Acetaminophen (Tylenol 325mg Tab) 650 mg PO Q4H PRN PRN Reason: Fever >100.4 F Last Admin: 05/01/17 00:14 Dose: 650 mg Ascorbic Acid (Vitamin C 500 Mg Tab) 500 mg PO DAILY [facility] Collagenase (Santyl) 1 gm TOP BID [facility] Last Admin: 05/03/17 17:02 Dose: 1 applic Enoxaparin Sodium (Lovenox) 30 mg SC DAILY [facility] PRN Reason: Protocol Last Admin: 05/03/17 09:54 Dose: 30 mg Guaifenesin/Dextromethorphan (Robitussin Dm) 5 ml PO Q4H PRN PRN Reason: Cough Last Admin: 05/01/17 00:14 Dose: 5 ml Meropenem (Merrem Iv 1 Gm Premix) 50 mls @ 100 mls/hr IVPB Q8 [facility] PRN Reason: Protocol Last Admin: 05/03/17 13:46 Dose: 100 mls/hr Ibuprofen (Motrin Tab) 400 mg PO Q6H PRN PRN Reason: Fever >100.4 F Last Admin: 05/03/17 10:44 Dose: 400 mg Multivitamins/Minerals (Therapeutic-M Tab) 1 tab PO DAILY [facility] Pantoprazole Sodium (Protonix Ec Tab) 40 mg PO 0600 [facility] Last Admin: 05/03/17 05:52 Dose: 40 mg Zinc Sulfate (Zinc Sulfate 220 Mg Cap) 220 mg PO DAILY [facility] - Labs Labs: 05/03/17 06:40 05/02/17 06:30 PT 15.6 SECONDS (9.4-12.5) H 04/28/17 21:05 INR 1.42 (0.93-1.08) H 04/28/17 21:05 APTT 31.0 Seconds (25.1-36.5) 04/28/17 21:05 Attending/Attestation - Attestation I have personally seen and examined this patient.: Yes I have fully participated in the care of the patient.: Yes I have reviewed all pertinent clinical information, including history, physical exam and plan: Yes Notes (Text): I have seen and examined the patient at bedside. Agree with the above note with the following additions/ exceptions: Briefly this is 37 year old paraplegic male with history of HTN, immobilization, right and left gluteal decubitus ulcers for which he was in [facility] facility for wound care and discharged with a leg melendez bag who presented with complaints of positive UA, fever, and lack of appetite. Patient underwent bedside sacral wound debridement on 04/29. Wound culture is growing (ESBL Klebsiella and E Fecalis) and (EColi and proteus). Meropenem will be continued. Leukocytosis resolved. Blood culture and urine culture negative. Patient was given 2 units of prbc during hospitalization. Awaiting placement. Upon discharge patient will follow up with Dr Fernandez. Dr Bing Lim
--- NOTE | 2017-05-03 16:39 | CP.PCM.PN ---
Subjective - Date & Time of Evaluation Date of Evaluation: 05/03/17 Time of Evaluation: 16:36 - Subjective Subjective: Surgery Pt s&e. JOHNNY. Denies F/C?N/V/D/Cp/SOB. Peterson in place. Dressing changed this AM. Objective - Vital Signs/Intake and Output Vital Signs (last 24 hours): Temp Pulse Resp BP Pulse Ox 98.6 F 84 20 118/81 99 05/03/17 07:30 05/03/17 07:30 05/03/17 07:30 05/03/17 07:30 05/03/17 07:30 Intake and Output: 05/03/17 05/03/17 06:59 18:59 Intake Total 420 780 Output Total 1575 1100 Balance -1155 -320 - Medications Medications: Current Medications Acetaminophen (Tylenol 325mg Tab) 650 mg PO Q4H PRN PRN Reason: Fever >100.4 F Last Admin: 05/01/17 00:14 Dose: 650 mg Ascorbic Acid (Vitamin C 500 Mg Tab) 500 mg PO DAILY [facility] Collagenase (Santyl) 1 gm TOP BID [facility] Last Admin: 05/03/17 09:55 Dose: 1 applic Enoxaparin Sodium (Lovenox) 30 mg SC DAILY [facility] PRN Reason: Protocol Last Admin: 05/03/17 09:54 Dose: 30 mg Guaifenesin/Dextromethorphan (Robitussin Dm) 5 ml PO Q4H PRN PRN Reason: Cough Last Admin: 05/01/17 00:14 Dose: 5 ml Meropenem (Merrem Iv 1 Gm Premix) 50 mls @ 100 mls/hr IVPB Q8 [facility] PRN Reason: Protocol Last Admin: 05/03/17 13:46 Dose: 100 mls/hr Ibuprofen (Motrin Tab) 400 mg PO Q6H PRN PRN Reason: Fever >100.4 F Last Admin: 05/03/17 10:44 Dose: 400 mg Multivitamins/Minerals (Therapeutic-M Tab) 1 tab PO DAILY [facility] Pantoprazole Sodium (Protonix Ec Tab) 40 mg PO 0600 [facility] Last Admin: 05/03/17 05:52 Dose: 40 mg Zinc Sulfate (Zinc Sulfate 220 Mg Cap) 220 mg PO DAILY [facility] - Labs Labs: 05/03/17 06:40 05/02/17 06:30 PT 15.6 SECONDS (9.4-12.5) H 04/28/17 21:05 INR 1.42 (0.93-1.08) H 04/28/17 21:05 APTT 31.0 Seconds (25.1-36.5) 04/28/17 21:05 - Constitutional Appears: No Acute Distress - Head Exam Head Exam: ATRAUMATIC, NORMAL INSPECTION, NORMOCEPHALIC - Eye Exam Eye Exam: EOMI, Normal appearance, PERRL Pupil Exam: NORMAL ACCOMODATION, PERRL - ENT Exam ENT Exam: Mucous Membranes Moist, Normal Exam - Neck Exam Neck Exam: Full ROM, Normal Inspection. absent: Lymphadenopathy - Respiratory Exam Respiratory Exam: Clear to Ausculation Bilateral, NORMAL BREATHING PATTERN - Cardiovascular Exam Cardiovascular Exam: REGULAR RHYTHM, +S1, +S2. absent: Murmur - GI/Abdominal Exam GI & Abdominal Exam: Soft, Normal Bowel Sounds. absent: Tenderness - Rectal Exam Rectal Exam: NORMAL INSPECTION - Exam Additional comments: Peterson in place. - Extremities Exam Extremities Exam: absent: Full ROM, Joint Swelling, Normal Inspection, Pedal Edema Additional comments: b/l ischial ulcer. Stage 4. large . no bleeding. - Neurological Exam Neurological Exam: Alert, Awake, CN II-XII Intact, Oriented x3 - Psychiatric Exam Psychiatric exam: Normal Affect, Normal Mood - Skin Skin Exam: Erythema, Warm. absent: Intact Assessment and Plan - Assessment and Plan (Free Text) Assessment: 37yo M with stage 4 right hip ulcer, stage 4 left ischial ulcer, s/p bedside debridement 04/29/17 - Dressing changes with Santyl BID. Apply optiform - IV antibiotics - Medical management as per primary Further recs as per Dr. Bennett
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
[2017-05-04] MEDS: Meropenem IV 1 gm in NS 50 ML IVPB SCH ×3 (05:45→21:36)
[2017-05-04] MEDS: Pantoprazole 40 mg EC Tab PO SCH (05:46)
[2017-05-04 07:14] LABS: HEMOGLOBIN 9.1 g/dL (14.0-18.0); MEAN CELL VOLUME 80.4 fl (80.0-105.0); MEAN CORPUSCULAR HEMOGLOBIN 25.4 pg (25.0-35.0); MEAN CORPUSCULAR HGB CONC 31.6 g/dl (31.0-37.0); MEAN PLATELET VOLUME 8.5 fl (7.0-11.0); RBC 3.58 10^6/uL (3.5-6.1); RED CELL DISTRIBUTION WIDTH 16.5 % (11.5-14.5); WHITE BLOOD COUNT 10.3 10^3/ul (4.5-11.0)
[2017-05-04 07:53] LABS: ALB/GLOB RATIO 0.7 (1.1-1.8); ALBUMIN 2.9 g/dL (3.0-4.8); ALT/SGPT 57 U/L (7-56); AST/SGOT 56 U/L (17-59); BLOOD UREA NITROGEN 9 mg/dL (7-21); CALCIUM 8.9 mg/dL (8.4-10.5); GFR AFRICAN-AMERICAN > 60; GFR NON-AFRICAN AMERICAN > 60
--- NOTE | 2017-05-04 08:58 | CP.PCM.PN ---
Subjective - Date & Time of Evaluation Date of Evaluation: 05/04/17 Time of Evaluation: 06:45 - Subjective Subjective: COG-PGY1- General Surgery Progress note for Dr. Bennett Patient seen and examined this AM. No acute events reported overnight. Wound change done yesterday with continued drainage. Patient denies chest pain, shortness of breath, abdominal pain, nausea, vomiting, fever, chills. Wound dressing change discussed. Objective - Vital Signs/Intake and Output Vital Signs (last 24 hours): Temp Pulse Resp BP Pulse Ox 99.4 F 87 20 118/75 99 05/04/17 08:30 05/04/17 08:30 05/04/17 08:30 05/04/17 08:30 05/04/17 08:30 Intake and Output: 05/04/17 05/04/17 06:59 18:59 Intake Total 780 Output Total 500 Balance 280 - Medications Medications: Current Medications Acetaminophen (Tylenol 325mg Tab) 650 mg PO Q4H PRN PRN Reason: Fever >100.4 F Last Admin: 05/01/17 00:14 Dose: 650 mg Ascorbic Acid (Vitamin C 500 Mg Tab) 500 mg PO DAILY [facility] Collagenase (Santyl) 1 gm TOP BID [facility] Last Admin: 05/03/17 17:02 Dose: 1 applic Enoxaparin Sodium (Lovenox) 30 mg SC DAILY [facility] PRN Reason: Protocol Last Admin: 05/03/17 09:54 Dose: 30 mg Guaifenesin/Dextromethorphan (Robitussin Dm) 5 ml PO Q4H PRN PRN Reason: Cough Last Admin: 05/01/17 00:14 Dose: 5 ml Meropenem (Merrem Iv 1 Gm Premix) 50 mls @ 100 mls/hr IVPB Q8 [facility] PRN Reason: Protocol Last Admin: 05/04/17 05:45 Dose: 100 mls/hr Ibuprofen (Motrin Tab) 400 mg PO Q6H PRN PRN Reason: Fever >100.4 F Last Admin: 05/03/17 10:44 Dose: 400 mg Multivitamins/Minerals (Therapeutic-M Tab) 1 tab PO DAILY [facility] Pantoprazole Sodium (Protonix Ec Tab) 40 mg PO 0600 [facility] Last Admin: 05/04/17 05:46 Dose: 40 mg Zinc Sulfate (Zinc Sulfate 220 Mg Cap) 220 mg PO DAILY [facility] - Labs Labs: 05/04/17 06:30 05/04/17 06:30 PT 15.6 SECONDS (9.4-12.5) H 04/28/17 21:05 INR 1.42 (0.93-1.08) H 04/28/17 21:05 APTT 31.0 Seconds (25.1-36.5) 04/28/17 21:05 - Constitutional Appears: No Acute Distress - Head Exam Head Exam: ATRAUMATIC, NORMAL INSPECTION, NORMOCEPHALIC - Eye Exam Eye Exam: EOMI, PERRL - ENT Exam ENT Exam: Mucous Membranes Moist - Respiratory Exam Respiratory Exam: Clear to Ausculation Bilateral, NORMAL BREATHING PATTERN - Cardiovascular Exam Cardiovascular Exam: REGULAR RHYTHM, +S1, +S2 - GI/Abdominal Exam GI & Abdominal Exam: Soft, Normal Bowel Sounds - Extremities Exam Extremities Exam: Full ROM - Neurological Exam Neurological Exam: Alert, Awake, Oriented x3 - Psychiatric Exam Psychiatric exam: Normal Affect, Normal Mood - Skin Skin Exam: Dry, Normal Color Additional comments: Right Stage 4 hip ulcer, Left stage 3 ischial ulcer. Dressing clean, dry, and intact. Assessment and Plan - Assessment and Plan (Free Text) Assessment: 37 yea rold male with stage 4 right hip ulcer, stage 4 left ischial ulcer, s/p bedside debridement 04/29/17 Plan: - Dressing changes with Santyl, Alignite, 4x4's, ABD, BID. Apply optiform - IV antibiotics per ID - Okay for discharge from surgical standpoint - Medical management as per primary Will discuss plan and further recs with Dr. Bennett
[2017-05-04] MEDS: Enoxaparin 30 mg Syringe SC SCH (10:46)
[2017-05-04] MEDS: Multivitamin With Minerals Tab PO SCH (10:46)
[2017-05-04] MEDS: Collagenase 250 Units/gm Ointment(30 gm) TOP SCH ×2 (10:46→21:23)
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
--- NOTE | 2017-05-04 22:57 | CP.PCM.PN ---
<Stoney Dean - Last Filed: 05/04/17 22:53> Subjective - Date & Time of Evaluation Date of Evaluation: 05/04/17 Time of Evaluation: 12:35 - Subjective Subjective: Medicine Progress Note Pt seen and examined at bedside. No acute overnight events. Pt awaiting transfer to [facility]. Pt denied CP, SOB, nausea, vomiting, diarrhea, abdominal pain, fever, chills, TELLEZ, or dizziness. Objective - Vital Signs/Intake and Output Vital Signs (last 24 hours): Temp Pulse Resp BP Pulse Ox 98.4 F 102 H 18 110/70 96 05/04/17 16:00 05/04/17 18:22 05/04/17 16:00 05/04/17 16:00 05/04/17 16:00 Intake and Output: 05/04/17 05/05/17 18:59 06:59 Intake Total 1320 420 Output Total 1200 300 Balance 120 120 - Medications Medications: Current Medications Acetaminophen (Tylenol 325mg Tab) 650 mg PO Q4H PRN PRN Reason: Fever >100.4 F Last Admin: 05/01/17 00:14 Dose: 650 mg Ascorbic Acid (Vitamin C 500 Mg Tab) 500 mg PO DAILY [facility] Last Admin: 05/04/17 10:46 Dose: 500 mg Collagenase (Santyl) 1 gm TOP BID ANABELL Last Admin: 05/04/17 10:46 Dose: Not Given Enoxaparin Sodium (Lovenox) 30 mg SC DAILY ANABELL PRN Reason: Protocol Last Admin: 05/04/17 10:46 Dose: 30 mg Guaifenesin/Dextromethorphan (Robitussin Dm) 5 ml PO Q4H PRN PRN Reason: Cough Last Admin: 05/01/17 00:14 Dose: 5 ml Meropenem (Merrem Iv 1 Gm Premix) 50 mls @ 100 mls/hr IVPB Q8 ANABELL PRN Reason: Protocol Last Admin: 05/04/17 21:36 Dose: 100 mls/hr Ibuprofen (Motrin Tab) 400 mg PO Q6H PRN PRN Reason: Fever >100.4 F Last Admin: 05/03/17 10:44 Dose: 400 mg Multivitamins/Minerals (Therapeutic-M Tab) 1 tab PO DAILY ANABELL Last Admin: 05/04/17 10:46 Dose: 1 tab Pantoprazole Sodium (Protonix Ec Tab) 40 mg PO 0600 [facility] Last Admin: 05/04/17 05:46 Dose: 40 mg Zinc Sulfate (Zinc Sulfate 220 Mg Cap) 220 mg PO DAILY [facility] Last Admin: 05/04/17 10:46 Dose: 220 mg - Labs Labs: 05/04/17 06:30 05/04/17 06:30 PT 15.6 SECONDS (9.4-12.5) H 04/28/17 21:05 INR 1.42 (0.93-1.08) H 04/28/17 21:05 APTT 31.0 Seconds (25.1-36.5) 04/28/17 21:05 - Constitutional Appears: No Acute Distress - Head Exam Head Exam: NORMAL INSPECTION - Eye Exam Eye Exam: Normal appearance - ENT Exam ENT Exam: Normal Exam - Neck Exam Neck Exam: Normal Inspection - Respiratory Exam Respiratory Exam: Clear to Ausculation Bilateral. absent: Rales, Rhonchi, Wheezes - Cardiovascular Exam Cardiovascular Exam: RRR, +S1, +S2. absent: Gallop, Rubs, Murmur - GI/Abdominal Exam GI & Abdominal Exam: Soft. absent: Distended, Guarding, Tenderness, Rebound - Extremities Exam Additional comments: Stage 4 right hip decubitus ulcer, stage 3 left ischial decubitus ulcer. Dressings clean dry and intact. - Neurological Exam Neurological Exam: Alert, Awake, Oriented x3 - Psychiatric Exam Psychiatric exam: Normal Affect, Normal Mood - Skin Skin Exam: Dry, Intact, Normal Color, Warm Assessment and Plan - Assessment and Plan (Free Text) Assessment: 37yo paraplegic male with HTN, immobility, right and left gluteal decubitus ulcers for which he was in [facility] facility for wound care and discharged with a leg melendez bag who presented to [facility] with 3.5 days of cloudy urine, fever, and lack of appetite. Plan: Awaiting transfer to [facility], pending insurance approval. 1. Sepsis, resolved - likely secondary to decubitus ulcers vs UTI - Leukocytosis resolved, Afebrile - ID consulted Merrem 1gm IVPB Q8h Day 4, patient will require 7-10 days total - Blood and urine cultures negative - Wound cultures Left ischial positive for Klebsiella pneumoniae and Enterococcus Faecalis Right Hip positive for E. coli and Proteus Mirabilis - Elevated CRP and ESR - CT abdomen/pelvis: few mildly enlarged retroperitoneal lymph nodes. Enlarged lymph nodes are visualized along external iliac chains R > L. B/l inguinal lymphadenopathy. Area of soft tissue loss lateral to the right hip which is likely postop or ulcerative. Small hiatal hernia - Abd u/s: CBD at van hepatis 4.25mm. WNL - Tylenol for temp 2. Decubitus ulcer - Stage 4 right hip ulcer and Stage 4 left ischial ulcer, s/p bedside debridement 04/29/17 - Wound cultures Left ischial positive for Klebsiella pneumoniae and Enterococcus Faecalis Right Hip positive for E. coli and Proteus Mirabilis - Surgery consulted for wound care - Cont IV abx 3. Anemia of Chronic Disease - Low Fe, TIBC, and %sat - Stool Guaiac negative in ED - 2 U PRBCs administered - H&H stable, will continue to monitor - GI consulted 4. Transaminitis - Abd u/s unremarkable - Hep panel neg - Monitor DVT/GI prophylaxis - Lovenox - Protonix Patient seen and discussed in detail with Dr. Lim. Carlos Dean, PGY1 <Bing Lim B - Last Filed: 05/05/17 14:35> Objective - Vital Signs/Intake and Output Vital Signs (last 24 hours): Temp Pulse Resp BP Pulse Ox 98.2 F 95 H 18 114/82 98 05/05/17 07:30 05/05/17 07:30 05/05/17 07:30 05/05/17 07:30 05/05/17 07:30 Intake and Output: 05/05/17 05/05/17 06:59 18:59 Intake Total 810 Output Total 900 Balance -90 - Medications Medications: Current Medications Acetaminophen (Tylenol 325mg Tab) 650 mg PO Q4H PRN PRN Reason: Fever >100.4 F Last Admin: 05/01/17 00:14 Dose: 650 mg Ascorbic Acid (Vitamin C 500 Mg Tab) 500 mg PO DAILY [facility] Last Admin: 05/05/17 10:27 Dose: Not Given Collagenase (Santyl) 1 gm TOP BID [facility] Last Admin: 05/04/17 21:23 Dose: 1 applic Enoxaparin Sodium (Lovenox) 30 mg SC DAILY [facility] PRN Reason: Protocol Last Admin: 05/05/17 10:30 Dose: 30 mg Guaifenesin/Dextromethorphan (Robitussin Dm) 5 ml PO Q4H PRN PRN Reason: Cough Last Admin: 05/01/17 00:14 Dose: 5 ml Meropenem (Merrem Iv 1 Gm Premix) 50 mls @ 100 mls/hr IVPB Q8 ANABELL PRN Reason: Protocol Last Admin: 05/05/17 06:23 Dose: 100 mls/hr Ibuprofen (Motrin Tab) 400 mg PO Q6H PRN PRN Reason: Fever >100.4 F Last Admin: 05/03/17 10:44 Dose: 400 mg Multivitamins/Minerals (Therapeutic-M Tab) 1 tab PO DAILY ANABELL Last Admin: 05/05/17 10:27 Dose: Not Given Pantoprazole Sodium (Protonix Ec Tab) 40 mg PO 0600 [facility] Last Admin: 05/05/17 06:23 Dose: 40 mg Zinc Sulfate (Zinc Sulfate 220 Mg Cap) 220 mg PO DAILY [facility] Last Admin: 05/05/17 10:27 Dose: Not Given - Labs Labs: 05/04/17 06:30 05/04/17 06:30 PT 15.6 SECONDS (9.4-12.5) H 04/28/17 21:05 INR 1.42 (0.93-1.08) H 04/28/17 21:05 APTT 31.0 Seconds (25.1-36.5) 04/28/17 21:05 Attending/Attestation - Attestation I have personally seen and examined this patient.: Yes I have fully participated in the care of the patient.: Yes I have reviewed all pertinent clinical information, including history, physical exam and plan: Yes Notes (Text): I have seen and examined the patient at bedside. Agree with the above note with the following additions/ exceptions: Briefly this is 37 year old paraplegic male with history of HTN, immobilization, right and left gluteal decubitus ulcers for which he was in [place] [facility] facility for wound care and discharged with a leg melendez bag who presented with complaints of positive UA, fever, and lack of appetite. Patient underwent bedside sacral wound debridement on 04/29. Wound culture is growing (ESBL Klebsiella and E Fecalis) and (EColi and proteus). Meropenem will be continued. Leukocytosis resolved. Blood culture and urine culture negative. Patient was given 2 units of prbc during hospitalization. Denies complaints and is refusing blood draws. Awaiting placement. Upon discharge patient will follow up with Dr Fernnadez. Dr Bing Lim
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
[2017-05-05] MEDS: Pantoprazole 40 mg EC Tab PO SCH (06:23)
[2017-05-05] MEDS: Meropenem IV 1 gm in NS 50 ML IVPB SCH ×2 (06:23→15:42)
[2017-05-05 08:29] VITALS: BP 114/82; PULSE 95; RESP 18; TEMP 98.2; O2SAT 98
[2017-05-05] MEDS: Multivitamin With Minerals Tab PO SCH (10:27)
[2017-05-05] MEDS: Enoxaparin 30 mg Syringe SC SCH (10:30)
[2017-05-05] MEDS: Collagenase 250 Units/gm Ointment(30 gm) TOP SCH (15:37)
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
== END 2017-05-05 17:19 | DRG 581 ==
LOC: ED 19:01 → ERH 04-29 00:34 → 5RNO 04-29 01:19
PROVIDERS: ADMIT Internal Medicine; ATTEND Hospitalist
PROC: 0HB6XZZ Excision of Back Skin, External Approach (ICD-10-PCS; principal; 2017-04-29)
PROC: 30233N1 Transfusion of Nonautologous Red Blood Cells into Peripheral Vein, Percutaneous Approach (ICD-10-PCS; 2017-04-29)
DX: A41.9 Sepsis, unspecified organism (principal); L89.314 Pressure ulcer of right buttock, stage 4; L89.214 Pressure ulcer of right hip, stage 4; L89.323 Pressure ulcer of left buttock, stage 3; G82.20 Paraplegia, unspecified; N39.0 Urinary tract infection, site not specified; B96.1 Klebsiella pneumoniae [K. pneumoniae] as the cause of diseases classified elsewhere; B96.4 Proteus (mirabilis) (morganii) as the cause of diseases classified elsewhere; D63.8 Anemia in other chronic diseases classified elsewhere; I10 Essential (primary) hypertension; Z74.01 Bed confinement status; Z99.3 Dependence on wheelchair; Z87.891 Personal history of nicotine dependence; R40.2412 Glasgow coma scale score 13-15, at arrival to emergency department; R74.0 Nonspecific elevation of levels of transaminase and lactic acid dehydrogenase [LDH]; B95.2 Enterococcus as the cause of diseases classified elsewhere; B96.20 Unspecified Escherichia coli [E. coli] as the cause of diseases classified elsewhere; Z16.12 Extended spectrum beta lactamase (ESBL) resistance

== ENCOUNTER 2017-05-27 17:37 | Emergency (ER) | payer MEDICAID ==
[2017-05-27 17:53] VITALS: TEMP 99.6; BMI 21.8
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
--- NOTE | 2017-05-27 21:45 | RAD ---
EXAM: XR Pelvis, 1 or 2 Views CLINICAL HISTORY: 37 years old, male; Pain; Hip pain and pelvic pain; Bilateral; Additional info: Fracture TECHNIQUE: Frontal view of the pelvis. COMPARISON: CT - ABD PELVIS PO CONTRAST ONLY 2017-05-01 18:27 FINDINGS: Limitations: Rotation - moderate. Bones/joints: No displaced fracture. No dislocation. Heterotopic ossification about hip joints. Soft tissues: Few rounded calcifications within pelvis, likely phleboliths. IMPRESSION: 1. No displaced fracture. 2. If hip pain persists, consider MRI to exclude occult fracture/internal derangement. 3. Incidental/non-acute findings are described above.
--- NOTE | 2017-05-27 21:46 | RAD ---
EXAM: XR Right Femur, 2 Views CLINICAL HISTORY: 37 years old, male; Pain; Other: Femur; Additional info: R/O fractures TECHNIQUE: Frontal and lateral views of the right femur. COMPARISON: No relevant prior studies available. FINDINGS: Limitations: Incomplete visualization of proximal femur. Bones/joints: No displaced fracture. Soft tissues: Unremarkable. IMPRESSION: 1. No displaced fracture. EXAM: XR Left Femur, 2 Views CLINICAL HISTORY: 37 years old, male; Pain; Other: Femur; Additional info: R/O fractures TECHNIQUE: Frontal and lateral views of the left femur. COMPARISON: No relevant prior studies available. FINDINGS: Limitations: Incomplete visualization of proximal and distal femur. Bones/joints: No displaced fracture. Soft tissues: Unremarkable. IMPRESSION: 1. No displaced fracture.
--- NOTE | 2017-05-27 21:51 | RAD ---
EXAM: XR Bilateral Ribs and AP Chest, 4 or More Views CLINICAL HISTORY: 37 years old, male; Pain; Other: Rib pain; Additional info: R/O fractures TECHNIQUE: Frontal and oblique views of the bilateral ribs and frontal view of the chest. COMPARISON: DX - CHEST TWO VIEWS (PA/LAT) 2017-04-28 23:18 FINDINGS: Lungs: No consolidation. Pleural space: No pleural effusion. No pneumothorax. Heart: No cardiomegaly. Mediastinum: Unremarkable. Bones/joints: Postsurgical/degenerative changes of spine. Several healed bilateral rib fractures. No acute fracture. Upper abdomen: IVC filter. IMPRESSION: 1. No definite acute cardiopulmonary disease. 2. Incidental/non-acute findings are described above.
[2017-05-27 22:18] LABS: HEMOGLOBIN 9.1 g/dL (14.0-18.0); MEAN CELL VOLUME 77.3 fl (80.0-105.0); MEAN CORPUSCULAR HEMOGLOBIN 24.3 pg (25.0-35.0); MEAN CORPUSCULAR HGB CONC 31.5 g/dl (31.0-37.0); RBC 3.74 10^6/uL (3.5-6.1); RED CELL DISTRIBUTION WIDTH 16.8 % (11.5-14.5); WHITE BLOOD COUNT 12.7 10^3/ul (4.5-11.0)
[2017-05-27 22:35] LABS: ALB/GLOB RATIO 0.7 (1.1-1.8); ALBUMIN 3.3 g/dL (3.0-4.8); ALT/SGPT 38 U/L (7-56); AST/SGOT 31 U/L (17-59); BLOOD UREA NITROGEN 11 mg/dL (7-21); CALCIUM 8.8 mg/dL (8.4-10.5); GFR AFRICAN-AMERICAN > 60; GFR NON-AFRICAN AMERICAN > 60
[2017-05-28 03:57] VITALS: BP 118/78; PULSE 98; RESP 18; O2SAT 100
== END 2017-05-28 03:58 | disposition home or self-care (01) ==
LOC: ED 17:37
DX: Z00.00 Encounter for general adult medical examination without abnormal findings (principal); I10 Essential (primary) hypertension; Z87.891 Personal history of nicotine dependence